=== PATIENT | female | born 1980 | race Caucasian/White ===

== ENCOUNTER 2016-10-13 21:20 | Emergency (ER) | payer BC ==
[2016-10-13 21:42] VITALS: BP 157/109
--- NOTE | 2016-10-13 22:11 | EDM.PDOC ---
ED HPI GENERAL MEDICAL PROBLEM - General Chief Complaint: Back Pain or Injury Stated Complaint: UPPER NECK AND SHOULDER PAIN Time Seen by Provider: 10/13/16 21:50 Source of Information: Reports: Patient History Limitations: Reports: Other (angry) - History of Present Illness INITIAL COMMENTS - FREE TEXT/NARRATIVE: Patient is a 36-year-old female with history of fibromyalgia who presents to the ED complaining of right-sided neck discomfort. Patient states neck discomfort has been going on for the past 2 and half months. She's been seen Dr. Kohli PCP at [facility] in [place]. He is undergone multiple trigger point injections the right trapezius with some relief. Patient states the pain is constant with waxing and waning in intensity. She was last seen by Dr. Kohli this past . States yesterday she was washing the floor and awoke this morning with increasing pain to the right side of her neck. Pain is localized. Worsened with palpation and also stretching of the neck. She took a Flexeril this afternoon with some relief. States she's utilizing her right arm with less and less due to reaggravated her neck pain. She has had no physical therapy. She refuses to have physical therapy. She has been living with fibromyalgia for the past 20 years and has been performing stretching exercises on her own. She does not participate any physical activities. She has been evaluated by a chiropractor with minimal relief. Denies fever/chills, weakness, n/t, n/v, vision changes, or any additional complaints. Past medical history: Hypertension, gastritis, GERD, hemorrhoids, irritable bowel syndrome, nausea/vomiting, diarrhea, peptic ulcer disease, L or baited LFTs, rectal bleeding renal calculus, UTI, endometriosis, menorrhagia, pelvic pain, fibromyalgia, polyarthralgia, carpal tunnel syndrome, arthropathy, migraines, chronic pain neck/back/legs, depression, anxiety, obesity, vitamin D deficiency, cushingoid facies, B12 deficiency, iron deficiency, hypokalemia, cerebra dermatitis, candidiasis Current medications see list. Right Neck Pain Score (Numeric/FACES): 10 - Related Data Allergies Allergy/AdvReac Type Severity Reaction Status Date / Time Cephalosporins Allergy Unknown Cannot Verified 10/13/16 21:42 Remember Penicillins Allergy Unknown Hives Verified 10/13/16 21:42 Sulfa (Sulfonamide Allergy Unknown Hives Verified 10/13/16 21:42 Antibiotics) ondansetron HCl Allergy unknown Verified 10/13/16 21:42 [From Zofran (as hydrochloride)] sertraline HCl [From Zoloft] AdvReac Mild Dizziness Verified 10/13/16 21:42 latex AdvReac Unknown Decreased Verified 10/13/16 21:42 Urine Output metoclopramide HCl AdvReac Diarrhea Verified 10/13/16 21:42 [From Reglan] Home Meds: Home Meds RX: Lisinopril 5 mg PO DAILY 12/09/14 [History] RX: Pantoprazole [ProTONIX] 40 mg PO DAILY 12/15/14 [History] Fluconazole [Diflucan] 150 mg PO DAILY #2 tablet 06/15/16 [Rx] RX: Azithromycin [IJD: Azithromycin] 250 mg PO DAILY #6 tab 06/15/16 [Rx] Topiramate [Topamax] 25 mg PO DAILY 06/15/16 [History] Past Medical History HEENT History: Reports: Impaired Vision Other HEENT History: Wears glasses Cardiovascular History: Reports: Hypertension Other Cardiovascular History: tachycardia Other Respiratory History: Severe snoring [negative sleep study] Gastrointestinal History: Reports: Gastritis, GERD, Hemorrhoids, Irritable Bowel Syndrome Other Gastrointestinal History: nausea and vomitting, diarrhea, peptic ulcer, transaminitis - drug-induced elev. 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 Other OB/BYN History: menorrhagia, pelvic pain, 3 surgeries for endometriosis Musculoskeletal History: Reports: Fracture, Fibromyalgia Other Musculoskeletal History: hx of fracture to foot, chronic pain, polyarthralgia, carpal tunnel syndrome, arthropathy Neurological History: Reports: Migraines Other Neuro History: fibromyalgia, chronic pain -neck/back/lower legs, migraines with aura Psychiatric History: Reports: Anxiety, Depression Other Psychiatric History: fatigue Endocrine/Metabolic History: Reports: Obesity/BMI 30+, Vitamin D Deficiency Other Endocrine/Metabolic History: cushingoid facies Hematologic History: Reports: B12 Deficiency, Iron Deficiency Other Hematologic History: hypokalemia, iron deficiency, vitamin b 12 deficiency , vitamin D deficiency Dermatologic History: Reports: Seborrheic Dermatitis Other Dermatologic History: seborrheic keratosis, nevus, rash, seborrheic dermatitis, hx of candidiasis - Past Surgical History HEENT Surgical History: Reports: Naso-Sinus Surgery GI Surgical History: Reports: Colonoscopy, EGD Female Surgical History: Reports: Breast Reduction, Hysterectomy, Kidney stone extraction Social & Family History - Family History Family Medical History: Noncontributory - Tobacco Use Smoking Status *Q: Never Smoker Years of Tobacco use: 15 Packs/Tins Daily: 0.3 Used Tobacco, but Quit: Yes Month Tobacco Last Used: Quit 2011 Second Hand Smoke Exposure: No - Caffeine Use Caffeine Use: Reports: Soda, Tea Other Caffeine Use: rarely on the soda - Alcohol Use Days Per Week of Alcohol Use: 0 Number of Drinks Per Day: 0 Total Drinks Per Week: 0 - Recreational Drug Use Recreational Drug Use: No Drug Use in Last 12 Months: No - Living Situation & Occupation Living situation: Reports: , with Spouse Occupation: Unemployed ED ROS GENERAL - Review of Systems Review Of Systems: ROS reveals no pertinent complaints other than HPI. ED EXAM, UPPER BACK/NECK PAIN - Physical Exam Exam: See Below Exam Limited By: No Limitations General Appearance: Alert, WD/WN, Anxious, Obese Ears Exam: Normal External Exam, Hearing Grossly Normal Nose Exam: Normal Inspection Throat/Mouth Exam: Normal Voice, No Airway Compromise Head Exam: Atraumatic, Normocephalic Neck Exam: Full Range of Motion, Normal Alignment, Normal Inspection, Other ( Tenderness to the right lateral aspect of the neck with extension into the Rolando trapezius. This is worsen with moving her head from left to right.). No: Spinous Processes Tender, Stiff Neck, Tender Midline Nexus Criteria: No: Posterior, Midline Cervical Tenderness, Evidence of Intoxication, Altered Level of Consciousness, Focal Neurological Deficit, Painful Distraction Injuries Cardiovascular/Respiratory: Regular Rate, Rhythm, No M/R/G, Normal Peripheral Pulses, No JVD, Normal Breath Sounds, No Respiratory Distress Back Exam: Normal Inspection, Full Range of Motion. 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 No: Motor Weakness, Sensory Deficit Psychiatric: Normal Affect, Anxious Skin Exam: Normal Color, Warm/Dry Course - Vital Signs Last Recorded V/S: Last Vital Signs Temp 98.0 F 10/13/16 21:38 Pulse 101 H 10/13/16 21:38 Resp 16 10/13/16 21:38 BP 157/109 H 10/13/16 21:38 Pulse Ox 97 10/13/16 21:38 - Re-Assessments/Exams Free Text/Narrative Re-Assessment/Exam: Patient presents to the ED complaining of right-sided neck discomfort that was exacerbated with cleaning the floor yesterday. Patient awoke up this morning with pain to the right side of her neck that has decreased with taking Flexeril tab. Patient's been seen Dr. Kohli PCP at [facility] in [place] for trigger point injections. She was last seen by him on of this past week. This has been an ongoing issue with waxing waning in intensity and relief of this treatments. She is concerned that there is something definitely wrong with her neck. Patient denies any recent trauma or precipitating activities and may have caused the neck discomfort onset. She has a history of chronic pain syndrome/fibromyalgia. She is requesting to have a CT scan or MRI of her neck to identify any potential causes of the discomfort. Dr. Kohli has not obtained a MRI or CT of the neck at this time. She refuses to go to physical therapy for what ever reason. I asked the patient if she participates in any physical activity such as lifting, walking, running. Patient states no she is active on a daily basis. I informed her that some people with fibromyalgia improve with doing some form of physical activity. Patient became aggravated and took it as I was telling her that she needs to run and lift weights to decrease her pain. I again informed her that literature has shown that some patients that performed some kind of physical activity such as lifting, walking, or running may decrease her pain. Again patient requested to have a CT scan of the neck. I informed her that is not required and is not the best study to obtain at this point. MRI is due to chronicity of complaint. She has no physical findings on exam that suggest requiring emergency CT scan of her neck at this point. I again informed her that this is not the study of choice and Dr. Kohli can arrange obtaining an MRI of the neck. Patient eloped. Departure - Departure Time of Disposition: 22:15 Disposition: Eloped 07 Condition: Good Clinical Impression: Chronic neck pain - Discharge Information Referrals: Cira Patricia [Primary Care Provider] - Forms: ED Department Discharge
== END 2016-10-13 22:15 | disposition left against medical advice (07) ==
LOC: JD.ED 21:20
DX: M54.2 Cervicalgia (principal); G89.29 Other chronic pain; I10 Essential (primary) hypertension; K21.9 Gastro-esophageal reflux disease without esophagitis; G43.909 Migraine, unspecified, not intractable, without status migrainosus; Z88.0 Allergy status to penicillin; Z88.2 Allergy status to sulfonamides; Z91.040 Latex allergy status; Z88.8 Allergy status to other drugs, medicaments and biological substances; Z79.899 Other long term (current) drug therapy; Z87.440 Personal history of urinary (tract) infections; Z90.710 Acquired absence of both cervix and uterus
CPT/HCPCS: 99282; 99283

== ENCOUNTER 2016-11-14 08:11 | Day surgery (SDC) | payer BC ==
[~2016-11-14 08:11] MED LIST: Lactated Ringers 1,000 ML IV SCH; Lidocaine 1%/Sod Bicarbonate in NS 8.4% 1 ML Syringe PRN; Sodium Chloride 0.9% 10 ML Syringe FLUSH PRN
--- NOTE | 2016-11-14 09:59 | PCM.PREANE ---
Preanesthetic Assessment - Anesthesia/Transfusion/Family Hx Anesthesia History: Prior Anesthesia Without Reaction Other Type of Anesthesia Reaction Comment: Unknown family history of surgery and anesthesia per patient Family History of Anesthesia Reaction: No Transfusion History: No Prior Transfusion(s) - Review of Systems General: No Symptoms Pulmonary: No Symptoms Cardiovascular: No Symptoms Gastrointestinal: Abdominal Pain Neurological: No Symptoms Other: Reports: None - Physical Assessment NPO Status Date: 11/13/16 NPO Status Time: 23:59 Pulse: 80 O2 Sat by Pulse Oximetry: 96 Respiratory Rate: 16 Blood Pressure: 130/87 Temperature: 97.5 C Vital Signs: Last Vital Signs Temp 36.4 C 11/14/16 08:15 Pulse 80 11/14/16 08:15 Resp 16 11/14/16 08:15 BP 130/87 11/14/16 08:15 Pulse Ox 96 11/14/16 08:15 Height: 1.6 m Weight: 84.368 kg ASA Class: 2 Mental Status: Alert & Oriented x3 Airway Class: Mallampati = 2 Dentition: Reports: Normal Dentition Thyro-Mental Finger Breadths: 2 Mouth Opening Finger Breadths: 3 ROM/Head Extension: Full Lungs: Clear to Auscultation, Normal Respiratory Effort Cardiovascular: Regular Rate, Regular Rhythm - Allergies Allergies/Adverse Reactions: Allergies Allergy/AdvReac Type Severity Reaction Status Date / Time Cephalosporins Allergy Unknown Cannot Verified 11/13/16 15:15 Remember Penicillins Allergy Unknown Hives Verified 11/13/16 15:15 Sulfa (Sulfonamide Allergy Unknown Hives Verified 11/13/16 15:15 Antibiotics) sertraline HCl [From Zoloft] AdvReac Mild Dizziness Verified 11/13/16 15:15 latex AdvReac Unknown Decreased Verified 11/13/16 15:15 Urine Output metoclopramide HCl AdvReac Diarrhea Verified 11/13/16 15:15 [From Reglan] - Acknowledgements Anesthesia Type Planned: MAC Pt an Appropriate Candidate for the Planned Anesthesia: Yes Alternatives and Risks of Anesthesia Discussed w Pt/Guardian: Yes Pt/Guardian Understands and Agrees with Anesthesia Plan: Yes PreAnesthesia Questionnaire HEENT History: Reports: Allergic Rhinitis, Impaired Vision, Sinusitis Other HEENT History: Wears glasses, nasal ulcer Cardiovascular History: Reports: Hypertension Other Cardiovascular History: tachycardia, edema Respiratory History: Reports: Other (See Below) (pt has had a sleep study, negative) Other Respiratory History: Severe snoring [negative sleep study] Gastrointestinal History: Reports: Chronic Constipation, Chronic Diarrhea, Gastritis, GERD, Hemorrhoids, Irritable Bowel Syndrome, PUD Other Gastrointestinal History: nausea and vomitting, diarrhea, peptic ulcer, transaminitis - drug-induced elev. 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 Other OB/BYN History: menorrhagia, pelvic pain, 3 surgeries for endometriosis, breast swelling, candidasis of breast, dysmenorrhea, gential herpes, irregular menses, breast hematoma Musculoskeletal History: Reports: Fracture, Fibromyalgia, Neck Pain, Chronic, Other (See Below) Other Musculoskeletal History: hx of fracture to foot, chronic pain, polyarthralgia, carpal tunnel syndrome, arthropathy, chronic neck and shoulder pain, spine pain Neurological History: Reports: Headaches, Chronic, Migraines Other Neuro History: fibromyalgia, chronic pain -neck/back/lower legs, migraines with aura, memory impairments Psychiatric History: Reports: Anxiety, Depression Other Psychiatric History: fatigue, heterozygous MTHFR mutation [id number], chronic pain Endocrine/Metabolic History: Reports: Obesity/BMI 30+, Vitamin D Deficiency Other Endocrine/Metabolic History: cushingoid facies Hematologic History: Reports: B12 Deficiency, Iron Deficiency Other Hematologic History: hypokalemia, iron deficiency, vitamin b 12 deficiency , vitamin D deficiency, Heterozygous MTHFR mutation [id number] Immunologic History: Reports: None Oncologic (Cancer) History: Reports: None Dermatologic History: Reports: Seborrheic Dermatitis Other Dermatologic History: seborrheic keratosis, nevus, rash, seborrheic dermatitis, hx of candidiasis, hand dermatitis, neoplasm of skin, skin ulcer, surgical wound infection, viral warts - Past Surgical History Head Surgeries/Procedures: Reports: None HEENT Surgical History: Reports: Naso-Sinus Surgery Other HEENT Surgeries/Procedures: Deviated septum repair, sinus surgery Cardiovascular Surgical History: Reports: None Respiratory Surgical History: Reports: None GI Surgical History: Reports: Cholecystectomy, Colonoscopy, EGD Other GI Surgeries/Procedures: anal fistulotomy with botox injection Female Surgical History: Reports: Breast Reduction, Hysterectomy, Kidney stone extraction Male Surgical History: Reports: None Endocrine Surgical History: Reports: None Neurological Surgical History: Reports: None Musculoskeletal Surgical History: Reports: None Oncologic Surgical History: Reports: None Dermatological Surgical History: Reports: None (no anesthetic complications) - SUBSTANCE USE Smoking Status *Q: Former Smoker Tobacco Use Within Last Twelve Months: No Second Hand Smoke Exposure: No Days Per Week of Alcohol Use: 0 Number of Drinks Per Day: 0 Total Drinks Per Week: 0 Recreational Drug Use History: No - HOME MEDS Home Medications: Home Meds Betamethasone Dipropionate [Diprosone 0.05% Crm] 1 applic TOP BID 11/13/16 [ History] Betamethasone Valerate [IJD: Valisone 0.1% Crm] 1 applic TOP ASDIRECTED PRN [History] Cyclobenzaprine [Flexeril] 10 mg PO TID PRN 11/13/16 [History] Ranitidine HCl [Ranitidine] 150 mg PO BID 11/13/16 [History] Topiramate 50 mg PO DAILY 11/13/16 [History] - CURRENT (IN HOUSE) MEDS Current Meds: Current Medications Lactated Ringer's (Ringers, Lactated) 1,000 mls @ 125 mls/hr IV ASDIRECTED [place] Stop: 11/14/16 23:00 Last Admin: 11/14/16 08:40 Dose: 125 mls/hr Lidocaine/Sodium Bicarbonate (Buffered Lidocaine 1% In Ns 8.4%) 0.25 ml .XX ONETIME PRN PRN Reason: Prior to IV Start Stop: 11/14/16 18:00 Last Admin: 11/14/16 08:39 Dose: 0.25 ml Sodium Chloride (Saline Flush) 10 ml FLUSH ASDIRECTED PRN PRN Reason: Keep Vein Open Stop: 11/14/16 18:00
[2016-11-14] MEDS ORDERED: Propofol 200 MG/20 ML SDV ONE (10:21)
--- NOTE | 2016-11-14 10:32 | PCM.OPNOTE ---
- General Post-Op/Procedure Note Date of Surgery/Procedure: 11/14/16 Operative Procedure(s): Esophagogastroduodenoscopy with antral and GE junction biopsy 2 using cold forceps Findings: Retained food from yesterday's dinner otherwise an unremarkable endoscopic examination Pre Op Diagnosis: Dyspepsia and gastritis Post-Op Diagnosis: Normal endoscopic evaluation Anesthesia Technique: MAC, Moderate Sedation Primary Surgeon: Fernando Shen Pathology: GE junction and antral biopsies EBL in mLs: 0 Complications: None Condition: Good Free Text/Narrative:: After adequate IV sedation and analgesia was obtained with monitoring the patient was placed on her left side. Through a bite block a lubricated upper endoscope was inserted into the esophagus then advanced under direct vision to the stomach. The stomach contained a fair amount of food material with red beans and rice. The scope was advanced to the antrum and then into the duodenum. The second and first parts were endoscopically normal with no inflammatory changes or mass lesions seen. The antrum was unremarkable as well but I took 2 random biopsies for histologic review. In the retroflexed view one could see the food material. There was no hiatal hernia. The cardiac regions and fundic areas were normal. The body of the stomach couldn't be completely visualized because of the food material. There was slight duodenal gastric reflux when the patient coughed. The GE junction was endoscopically normal. I took 2 random biopsies of this area. The body of the esophagus was grossly normal. Air was removed as I finished the procedure. Photographs were taken for the patient and for the record.
--- NOTE | 2016-11-14 10:34 | PCM48HPAN ---
Post Anesthesia Note - EVALUATION WITHIN 48HRS OF ANESTHETIC Vital Signs in Normal Range: Yes Patient Participated in Evaluation: Yes Respiratory Function Stable: Yes Airway Patent: Yes Cardiovascular Function Stable: Yes Hydration Status Stable: Yes Pain Control Satisfactory: Yes Nausea and Vomiting Control Satisfactory: Yes Mental Status Recovered: Yes
[2016-11-14 11:19] VITALS: BP 117/69
== END 2016-11-14 11:10 | disposition home or self-care (01) ==
LOC: JD.SDS 08:11
PROVIDERS: ATTEND Surgery
PROC: 0DB68ZX Excision of Stomach, Via Natural or Artificial Opening Endoscopic, Diagnostic (ICD-10-PCS; principal; 2016-11-14)
DX: R10.13 Epigastric pain (principal); Z87.19 Personal history of other diseases of the digestive system; M54.2 Cervicalgia; G89.29 Other chronic pain; M79.7 Fibromyalgia; I10 Essential (primary) hypertension; K58.9 Irritable bowel syndrome, unspecified; E55.9 Vitamin D deficiency, unspecified; Z79.899 Other long term (current) drug therapy
CPT/HCPCS: 43239; 88305; J7120; 00740; J2704

== ENCOUNTER 2016-12-31 12:08 | Emergency (ER) | payer BC ==
[2016-12-31 12:20] VITALS: BP 138/94
[2016-12-31] MEDS ORDERED: Alum Hydrox/Mag Hydrox/Simeth 30 ML, Lidocaine 2% 15 ML PO ONE ×2 (12:44)
--- NOTE | 2016-12-31 12:51 | EDM.PDOC ---
ED HPI GENERAL MEDICAL PROBLEM - General Chief Complaint: Gastrointestinal Problem Stated Complaint: VOMITING BLOOD Time Seen by Provider: 12/31/16 12:32 Source of Information: Reports: Patient History Limitations: Reports: No Limitations - History of Present Illness INITIAL COMMENTS - FREE TEXT/NARRATIVE: Patient is a 36-year-old female with history of chronic gastritis presents the ED with pain to the epigastric region. Describes the pain as a sharp burning sensation with emesis of gastric contents. She has some acid reflux present. This is consistent with previous episodes. She is on no PPIs or H2 inhibitors at this time. She has had EGD and [address] Shen to biopsies obtained. Postop diagnosis is normal endoscopic evaluation. Patient awoke this morning with the discomfort. States last night she had eaten chips with salt and some eggs. She took maalox this am with onset of pain only to vomit it up. She has a history of fibromyalgia and gluten allergy. She is very cognizant of food she eats. Denies any ingestion of food or liquids that would have increased her symptoms. She did bring in a cup with only a few mls of emesis. Emesis was mostly clear with only a few specks of dark particles. She states is blood. No ceci blood present. She has no history of yousif nisreen tears. Denies CP, SOB, diarrhea, dysuria, lightheadness, or any additional complaints. Abdomen Pain Score (Numeric/FACES): 10 - Related Data Allergies Allergy/AdvReac Type Severity Reaction Status Date / Time Cephalosporins Allergy Unknown Cannot Verified 12/31/16 12:20 Remember Penicillins Allergy Unknown Hives Verified 12/31/16 12:20 Sulfa (Sulfonamide Allergy Unknown Hives Verified 12/31/16 12:20 Antibiotics) sertraline HCl [From Zoloft] AdvReac Mild Dizziness Verified 12/31/16 12:20 latex AdvReac Unknown Decreased Verified 12/31/16 12:20 Urine Output metoclopramide HCl AdvReac Diarrhea Verified 12/31/16 12:20 [From Reglan] Home Meds: Home Meds Cyclobenzaprine [Flexeril] 10 mg PO TID PRN 11/13/16 [History] Topiramate 50 mg PO DAILY 11/13/16 [History] Omeprazole 40 mg PO DAILY #28 cap.cr 12/31/16 [Rx] Sucralfate [Carafate] 1 gm PO QIDACANDBED #20 tablet 12/31/16 [Rx] Past Medical History HEENT History: Reports: Allergic Rhinitis, Impaired Vision, Sinusitis Other HEENT History: Wears glasses, nasal ulcer Cardiovascular History: Reports: Hypertension Other Cardiovascular History: tachycardia, edema Respiratory History: Reports: Other (See Below) Other Respiratory History: Severe snoring [negative sleep study] Gastrointestinal History: Reports: Chronic Constipation, Chronic Diarrhea, Gastritis, GERD, Hemorrhoids, Irritable Bowel Syndrome, PUD Other Gastrointestinal History: nausea and vomitting, diarrhea, peptic ulcer, transaminitis - drug-induced elev. 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: Reports: Endometriosis Other OB/BYN History: menorrhagia, pelvic pain, 3 surgeries for endometriosis, breast swelling, candidasis of breast, dysmenorrhea, gential herpes, irregular menses, breast hematoma Musculoskeletal History: Reports: Fracture, Fibromyalgia, Neck Pain, Chronic, Other (See Below) Other Musculoskeletal History: hx of fracture to foot, chronic pain, polyarthralgia, carpal tunnel syndrome, arthropathy, chronic neck and shoulder pain, spine pain Neurological History: Reports: Headaches, Chronic, Migraines Other Neuro History: fibromyalgia, chronic pain -neck/back/lower legs, migraines with aura, memory impairments Psychiatric History: Reports: Anxiety, Depression Other Psychiatric History: fatigue, heterozygous MTHFR mutation [id number], chronic pain Endocrine/Metabolic History: Reports: Obesity/BMI 30+, Vitamin D Deficiency Other Endocrine/Metabolic History: cushingoid facies Hematologic History: Reports: B12 Deficiency, Iron Deficiency Other Hematologic History: hypokalemia, iron deficiency, vitamin b 12 deficiency , vitamin D deficiency, Heterozygous MTHFR mutation [id number] Immunologic History: Reports: None Oncologic (Cancer) History: Reports: None Dermatologic History: Reports: Seborrheic Dermatitis Other Dermatologic History: seborrheic keratosis, nevus, rash, seborrheic dermatitis, hx of candidiasis, hand dermatitis, neoplasm of skin, skin ulcer, surgical wound infection, viral warts - Past Surgical History Head Surgeries/Procedures: Reports: None HEENT Surgical History: Reports: Naso-Sinus Surgery Other HEENT Surgeries/Procedures: Deviated septum repair, sinus surgery Cardiovascular Surgical History: Reports: None Respiratory Surgical History: Reports: None GI Surgical History: Reports: Cholecystectomy, Colonoscopy, EGD Other GI Surgeries/Procedures: anal fistulotomy with botox injection Female Surgical History: Reports: Breast Reduction, Hysterectomy, Kidney stone extraction, Lithotripsy/ESWL Endocrine Surgical History: Reports: None Neurological Surgical History: Reports: None Musculoskeletal Surgical History: Reports: None Oncologic Surgical History: Reports: None Dermatological Surgical History: Reports: None Social & Family History - Family History Family Medical History: Noncontributory - Tobacco Use Smoking Status *Q: Never Smoker Years of Tobacco use: 15 Packs/Tins Daily: 0.3 Used Tobacco, but Quit: Yes Month Tobacco Last Used: Quit 2011 Second Hand Smoke Exposure: No - Caffeine Use Caffeine Use: Reports: None Other Caffeine Use: rarely on the soda - Alcohol Use Days Per Week of Alcohol Use: 0 Number of Drinks Per Day: 0 Total Drinks Per Week: 0 - Recreational Drug Use Recreational Drug Use: No Drug Use in Last 12 Months: No - Living Situation & Occupation Living situation: Reports: , with Spouse Occupation: Unemployed ED ROS GENERAL - Review of Systems Review Of Systems: See Below Respiratory: Denies: Shortness of Breath, Cough, Sputum Cardiovascular: Denies: No Symptoms, Chest Pain, Palpitations GI/Abdominal: Reports: Abdominal Pain (epigastric burning sensation,consistent with previous episodes of gastritis), Decreased Appetite, Hematemesis (eloisa), Nausea, Vomiting. Denies: Black Stool, Bloody Stool, Constipation, Diarrhea, Hematochezia, Melena : Reports: No Symptoms Musculoskeletal: Reports: No Symptoms ED EXAM, GI/ABD - Physical Exam Exam: See Below Exam Limited By: No Limitations General Appearance: Alert, WD/WN, No Apparent Distress Ears: Hearing Grossly Normal Nose: Normal Inspection Throat/Mouth: Normal Voice, No Airway Compromise Neck: Normal Inspection Respiratory/Chest: No Respiratory Distress, Lungs Clear, Normal Breath Sounds, No Accessory Muscle Use, Chest Non-Tender Cardiovascular: Normal Peripheral Pulses, Regular Rate, Rhythm GI/Abdominal Exam: Normal Bowel Sounds, Soft, No Organomegaly, No Distention, Tender (mild pain with palpation to the epigastric region. No mcburneys point tenderness. ) Back Exam: Normal Inspection. No: CVA Tenderness (L), CVA Tenderness (R) Neurological: Alert, Oriented, CN II-XII Intact, Normal Cognition, No Motor/ Sensory Deficits Psychiatric: Normal Affect, Normal Mood Skin Exam: Warm, Dry, Intact, Normal Color Course - Vital Signs Last Recorded V/S: Last Vital Signs Temp 97.2 F 12/31/16 12:17 Pulse 103 H 12/31/16 12:17 Resp 16 12/31/16 12:17 BP 138/94 H 12/31/16 12:17 Pulse Ox 96 12/31/16 12:17 - Orders/Labs/Meds Meds: Medications Discontinued Medications Generic Name Dose Route Start Last Admin Trade Name Freq PRN Reason Stop Dose Admin Al Hydroxide/Mg Hydroxide 30 0 ml 12/31/16 12:44 12/31/16 12:53 ml/ Lidocaine HCl 15 ml PO 12/31/16 12:45 45 ml ONETIME ONE Administration Pantoprazole Sodium 40 mg 01/01/17 13:19 12/31/16 13:29 Protonix PO 01/01/17 13:20 40 mg DAILY ONE Administration Pantoprazole Sodium Confirm 12/31/16 13:25 12/31/16 13:29 Protonix Administered 12/31/16 13:26 Not Given Dose 40 mg .ROUTE .STK-MED ONE Sucralfate 1 gm 12/31/16 13:19 12/31/16 13:29 Carafate PO 12/31/16 13:20 1 gm ONETIME ONE Administration - Re-Assessments/Exams Free Text/Narrative Re-Assessment/Exam: Discussed with the patient that we will start with medications prior to obtaining any studies at this time. Patient agrees with this. Findings are consistent with previous episodes. Will start with the GI cocktail by mouth. Of note patient states she was receiving this from Dr. Longo her PCP on a daily basis for quite some time and had good results. 12/31/16 13:19 Symptoms have improved with the GI cocktail. Ordered Carafate 1 g by mouth and also Protonix 40 mg by mouth. We'll discharge patient home with instructions for gastritis. No further testing will be obtained. Departure - Departure Time of Disposition: 13:20 Disposition: Home, Self-Care 01 Condition: Good Clinical Impression: Gastritis Qualifiers: Gastritis type: unspecified gastritis Chronicity: chronic Gastritis bleeding: with bleeding Qualified Code(s): K29.51 - Unspecified chronic gastritis with bleeding Bloody emesis Qualifiers: Nausea presence: with nausea Qualified Code(s): K92.0 - Hematemesis - Discharge Information Prescriptions: Omeprazole 40 mg PO DAILY #28 cap.cr Sucralfate [Carafate] 1 gm PO QIDACANDBED #20 tablet Instructions: Gastritis, Adult Referrals: Cira Patricia [Primary Care Provider] - Forms: ED Department Discharge Additional Instructions: Symptoms were relieved with GI cocktail. Thus etiology of current complaint is related to chronic gastritis most likely. Treatment is symptomatically care only including x 40 mg every a.m. half-hour prior to eating for 2 weeks then one time a day thereafter. Carafate tabs 1 g times a day for 5 days. Refrain from any foods that cause aggravation. Refrain from any liquids that cause aggravation. Do not eat or drink within 4 hours of going to bed. This do not take any NSAIDs. See your PCP this week or the following week for reevaluation. Return to the ED for any new or worsening symptoms.
[2016-12-31] MEDS ORDERED: Sucralfate Suspension 1 GM/10 ML Cup PO ONE (13:19)
[2016-12-31] MEDS ORDERED: Pantoprazole 40 MG Tab.CR ONE (13:25)
[2017-01-01] MEDS ORDERED: Pantoprazole 40 MG Tab.CR PO ONE (13:19)
== END 2016-12-31 13:33 | disposition home or self-care (01) ==
LOC: JD.ED 12:08
DX: K29.71 Gastritis, unspecified, with bleeding (principal); K92.0 Hematemesis; I10 Essential (primary) hypertension; F32.9 Major depressive disorder, single episode, unspecified; E66.9 Obesity, unspecified; Z90.49 Acquired absence of other specified parts of digestive tract; Z98.890 Other specified postprocedural states; Z90.710 Acquired absence of both cervix and uterus; Z87.442 Personal history of urinary calculi; Z87.891 Personal history of nicotine dependence; Z79.899 Other long term (current) drug therapy; Z88.0 Allergy status to penicillin; Z88.1 Allergy status to other antibiotic agents; Z88.2 Allergy status to sulfonamides; Z88.8 Allergy status to other drugs, medicaments and biological substances; Z91.040 Latex allergy status
CPT/HCPCS: 99284; A9270; 99283

== ENCOUNTER 2018-05-19 21:37 | Emergency (ER) | payer BC, OTHER ==
[2018-05-19 21:49] VITALS: BP 166/97
[2018-05-19] MEDS ORDERED: Sodium Chloride 0.9% 1,000 ML IV STA (21:59)
[2018-05-19] MEDS ORDERED: Ondansetron 4 MG/2 ML SDV IVPUSH ONE (21:59)
[2018-05-19] MEDS ORDERED: Sodium Chloride 0.9% 10 ML Syringe FLUSH PRN (21:59)
[2018-05-19] MEDS ORDERED: HYDROmorphone 1 MG/ML Syringe IVPUSH ONE ×2 (22:00→22:57)
[2018-05-19] MEDS ORDERED: Sodium Chloride 0.9% 1,000 ML IV ONE (22:55)
--- NOTE | 2018-05-19 22:55 | EDM.PDOC ---
ED HPI GENERAL MEDICAL PROBLEM - General Chief Complaint: Abdominal Pain Stated Complaint: SEVERE ABDOMINAL PAIN VOMMITIING Time Seen by Provider: 05/19/18 21:48 Source of Information: Reports: Patient History Limitations: Reports: No Limitations - History of Present Illness INITIAL COMMENTS - FREE TEXT/NARRATIVE: The patient presents with nausea, vomiting, diarrhea and severe abdominal pain. This all started at 4am this morning. Her 's co-workers have all been sick. She has no fever, chills, cough, chest pain, shortness of breath, dysuria or hematuria. She does not think she is . She does not have a gallbladder but she has her appendix. This all started with the nausea and vomiting.l Onset: Gradual Duration: Hour(s): (started at 4am) Location: Reports: Abdomen Quality: Reports: Sharp, Other (cramping) Severity: Severe Improves with: Reports: None Worsens with: Reports: None Associated Symptoms: Reports: Nausea/Vomiting. Denies: Chest Pain, Cough, Fever /Chills, Headaches, Shortness of Breath Abdominal Pain Score (Numeric/FACES): 10 - Related Data Allergies Allergy/AdvReac Type Severity Reaction Status Date / Time Cephalosporins Allergy Unknown Cannot Verified 05/19/18 21:46 Remember Penicillins Allergy Unknown Hives Verified 05/19/18 21:46 Sulfa (Sulfonamide Allergy Unknown Hives Verified 05/19/18 21:46 Antibiotics) sertraline HCl [From Zoloft] AdvReac Mild Dizziness Verified 05/19/18 21:46 latex AdvReac Unknown Decreased Verified 05/19/18 21:46 Urine Output metoclopramide HCl AdvReac Diarrhea Verified 05/19/18 21:46 [From Reglan] Home Meds: Home Meds Cyclobenzaprine [Flexeril] 10 mg PO TID PRN 11/13/16 [History] Topiramate 50 mg PO DAILY 11/13/16 [History] Omeprazole 40 mg PO DAILY #28 cap.cr 12/31/16 [Rx] Sucralfate [Carafate] 1 gm PO QIDACANDBED #20 tablet 12/31/16 [Rx] Promethazine [Phenergan] 25 mg PO Q6H PRN #20 tab 05/20/18 [Rx] Past Medical History HEENT History: Reports: Allergic Rhinitis, Impaired Vision, Sinusitis Other HEENT History: Wears glasses, nasal ulcer Cardiovascular History: Reports: Hypertension Other Cardiovascular History: tachycardia, edema Respiratory History: Reports: Other (See Below) Other Respiratory History: Severe snoring [negative sleep study] Gastrointestinal History: Reports: Chronic Constipation, Chronic Diarrhea, Gastritis, GERD, Hemorrhoids, Irritable Bowel Syndrome, PUD Other Gastrointestinal History: nausea and vomitting, diarrhea, peptic ulcer, transaminitis - drug-induced elev. 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: Reports: Endometriosis Other SOLARIS ADMINISTRATOR History: menorrhagia, pelvic pain, 3 surgeries for endometriosis, breast swelling, candidasis of breast, dysmenorrhea, gential herpes, irregular menses, breast hematoma Musculoskeletal History: Reports: Fracture, Fibromyalgia, Neck Pain, Chronic, Other (See Below) Other Musculoskeletal History: hx of fracture to foot, chronic pain, polyarthralgia, carpal tunnel syndrome, arthropathy, chronic neck and shoulder pain, spine pain Neurological History: Reports: Headaches, Chronic, Migraines Other Neuro History: fibromyalgia, chronic pain -neck/back/lower legs, migraines with aura, memory impairments Psychiatric History: Reports: Anxiety, Depression Other Psychiatric History: fatigue, heterozygous MTHFR mutation [id number], chronic pain Endocrine/Metabolic History: Reports: Obesity/BMI 30+, Vitamin D Deficiency Other Endocrine/Metabolic History: cushingoid facies Hematologic History: Reports: B12 Deficiency, Iron Deficiency Other Hematologic History: hypokalemia, iron deficiency, vitamin b 12 deficiency , vitamin D deficiency, Heterozygous MTHFR mutation [id number] Immunologic History: Reports: None Oncologic (Cancer) History: Reports: None Dermatologic History: Reports: Seborrheic Dermatitis Other Dermatologic History: seborrheic keratosis, nevus, rash, seborrheic dermatitis, hx of candidiasis, hand dermatitis, neoplasm of skin, skin ulcer, surgical wound infection, viral warts - Past Surgical History Head Surgeries/Procedures: Reports: None HEENT Surgical History: Reports: Naso-Sinus Surgery Other HEENT Surgeries/Procedures: Deviated septum repair, sinus surgery Cardiovascular Surgical History: Reports: None Respiratory Surgical History: Reports: None GI Surgical History: Reports: Cholecystectomy, Colonoscopy, EGD Other GI Surgeries/Procedures: anal fistulotomy with botox injection Female Surgical History: Reports: Breast Reduction, Hysterectomy, Kidney stone extraction, Lithotripsy/ESWL Endocrine Surgical History: Reports: None Neurological Surgical History: Reports: None Musculoskeletal Surgical History: Reports: None Oncologic Surgical History: Reports: None Dermatological Surgical History: Reports: None Social & Family History - Family History Family Medical History: Noncontributory - Tobacco Use Smoking Status *Q: Never Smoker - Caffeine Use Caffeine Use: Reports: None Other Caffeine Use: rarely on the soda - Recreational Drug Use Recreational Drug Use: No - Living Situation & Occupation Living situation: Reports: , with Spouse Occupation: Unemployed ED ROS GENERAL - Review of Systems Review Of Systems: See Below Constitutional: Reports: No Symptoms HEENT: Reports: No Symptoms Respiratory: Reports: No Symptoms Cardiovascular: Reports: No Symptoms Endocrine: Reports: No Symptoms GI/Abdominal: Reports: Abdominal Pain, Diarrhea, Nausea, Vomiting : Reports: No Symptoms Musculoskeletal: Reports: No Symptoms Skin: Reports: No Symptoms ED EXAM, GI/ABD - Physical Exam Exam: See Below Exam Limited By: No Limitations General Appearance: Alert, Moderate Distress Ears: Normal External Exam Nose: Normal Inspection Head: Atraumatic, Normocephalic Neck: Normal Inspection Respiratory/Chest: No Respiratory Distress, Lungs Clear, Normal Breath Sounds Cardiovascular: Regular Rate, Rhythm, No Edema, No Murmur GI/Abdominal Exam: Soft, No Organomegaly, No Mass, Tender (Moderate tenderness to the upper abdomen.) Course - Vital Signs Last Recorded V/S: Last Vital Signs Temp 98.1 F 05/19/18 21:46 Pulse 97 05/19/18 21:46 Resp 16 05/19/18 21:46 BP 166/97 H 05/19/18 21:46 Pulse Ox 99 05/19/18 21:46 - Orders/Labs/Meds Orders: Active Orders 24 hr Category Date Time Status Peripheral IV Care [RC] . DIRECTED Care 05/19/18 21:59 Active Sodium Chloride 0.9% [Saline Flush] Med 05/19/18 21:59 Active 10 ml FLUSH ASDIRECTED PRN ED Antiemetic Medication Reflex [OM.PC] Stat Oth 05/19/18 21:59 Ordered Peripheral IV Insertion Adult [OM.PC] Stat Oth 05/19/18 21:59 Ordered Medication Orders Sodium Chloride (Saline Flush) 10 ml FLUSH ASDIRECTED PRN PRN Reason: Keep Vein Open Last Admin: 05/19/18 22:10 Dose: 10 ml Labs: Laboratory Tests 05/19/18 05/19/18 05/19/18 Range/Units 22:09 22:09 22:09 WBC 9.64 (3.98-10.04) K/mm3 RBC 5.02 (3.98-5.22) M/mm3 Hgb 15.2 (11.2-15.7) gm/L Hct 44.9 (34.1-44.9) % MCV 89.4 (79.4-94.8) fl MCH 30.3 (25.6-32.2) pg MCHC 33.9 (32.2-35.5) g/dl RDW Std Deviation 39.2 (36.4-46.3) fL Plt Count 330 (182-369) K/mm3 MPV 11.6 (9.4-12.3) fl Neut % (Auto) 74.6 H (34.0-71.1) % Lymph % (Auto) 17.4 L (19.3-51.7) % [place] % (Auto) 7.3 (4.7-12.5) % Eos % (Auto) 0.4 L (0.7-5.8) Baso % (Auto) 0.1 (0.1-1.2) % Neut # (Auto) 7.19 H (1.56-6.13) K/mm3 Lymph # (Auto) 1.68 (1.18-3.74) K/mm3 [place] # (Auto) 0.70 H (0.24-0.36) K/mm3 Eos # (Auto) 0.04 (0.04-0.36) K/mm3 Baso # (Auto) 0.01 (0.01-0.08) K/mm3 Sodium 140 (136-145) mEq/L Potassium 3.9 (3.5-5.1) mEq/L Chloride 102 (98-107) mEq/L Carbon Dioxide 15 L (21-32) mEq/L Anion Gap 26.9 H (5-15) BUN 14 (7-18) mg/dL Creatinine 1.0 (0.55-1.02) mg/dL Est Cr Clr Drug Dosing 63.10 mL/min Estimated GFR (MDRD) > 60 (>60) mL/min BUN/Creatinine Ratio 14.0 (14-18) Glucose 115 H (74-106) mg/dL Calcium 10.5 H (8.5-10.1) mg/dL Total Bilirubin 0.9 (0.2-1.0) mg/dL AST 23 (15-37) U/L ALT 22 (14-59) U/L Alkaline Phosphatase 40 L (46-116) U/L Total Protein 9.0 H (6.4-8.2) g/dl Albumin 4.9 (3.4-5.0) g/dl Globulin 4.1 gm/dL Albumin/Globulin Ratio 1.2 (1-2) Lipase 144 (73-393) U/L HCG, Qual Negative (NEGATIVE) Urine Color (Yellow) Urine Appearance (Clear) Urine pH (5.0-8.0) Ur Specific [place] (1.005-1.030) Urine Protein (Negative) Urine Glucose (UA) (Negative) Urine Ketones (Negative) Urine Occult Blood (Negative) Urine Nitrite (Negative) Urine Bilirubin (Negative) Urine Urobilinogen (0.2-1.0) Ur Leukocyte Esterase (Negative) Urine RBC (0-5) /hpf Urine WBC (0-5) /hpf Ur Epithelial Cells (0-5) /hpf Urine Bacteria (FEW) /hpf Urine Mucus (FEW) /hpf 05/19/18 Range/Units 23:00 WBC (3.98-10.04) K/mm3 RBC (3.98-5.22) M/mm3 Hgb (11.2-15.7) gm/L Hct (34.1-44.9) % MCV (79.4-94.8) fl MCH (25.6-32.2) pg MCHC (32.2-35.5) g/dl RDW Std Deviation (36.4-46.3) fL Plt Count (182-369) K/mm3 MPV (9.4-12.3) fl Neut % (Auto) (34.0-71.1) % Lymph % (Auto) (19.3-51.7) % [place] % (Auto) (4.7-12.5) % Eos % (Auto) (0.7-5.8) Baso % (Auto) (0.1-1.2) % Neut # (Auto) (1.56-6.13) K/mm3 Lymph # (Auto) (1.18-3.74) K/mm3 [place] # (Auto) (0.24-0.36) K/mm3 Eos # (Auto) (0.04-0.36) K/mm3 Baso # (Auto) (0.01-0.08) K/mm3 Sodium (136-145) mEq/L Potassium (3.5-5.1) mEq/L Chloride (98-107) mEq/L Carbon Dioxide (21-32) mEq/L Anion Gap (5-15) BUN (7-18) mg/dL Creatinine (0.55-1.02) mg/dL Est Cr Clr Drug Dosing mL/min Estimated GFR (MDRD) (>60) mL/min BUN/Creatinine Ratio (14-18) Glucose (74-106) mg/dL Calcium (8.5-10.1) mg/dL Total Bilirubin (0.2-1.0) mg/dL AST (15-37) U/L ALT (14-59) U/L Alkaline Phosphatase (46-116) U/L Total Protein (6.4-8.2) g/dl Albumin (3.4-5.0) g/dl Globulin gm/dL Albumin/Globulin Ratio (1-2) Lipase (73-393) U/L HCG, Qual (NEGATIVE) Urine Color Yellow (Yellow) Urine Appearance Slt cloudy H (Clear) Urine pH 5.5 (5.0-8.0) Ur Specific [place] > or = 1.030 (1.005-1.030) Urine Protein 1+ H (Negative) Urine Glucose (UA) Negative (Negative) Urine Ketones 4+ H (Negative) Urine Occult Blood 2+ H (Negative) Urine Nitrite Negative (Negative) Urine Bilirubin 1+ H (Negative) Urine Urobilinogen 0.2 (0.2-1.0) Ur Leukocyte Esterase Negative (Negative) Urine RBC 30-40 H (0-5) /hpf Urine WBC 0-5 (0-5) /hpf Ur Epithelial Cells 30-40 H (0-5) /hpf Urine Bacteria Few (FEW) /hpf Urine Mucus Not seen (FEW) /hpf Meds: Medications Generic Name Dose Route Start Last Admin Trade Name Freyadi PRN Reason Stop Dose Admin Sodium Chloride 10 ml 05/19/18 21:59 05/19/18 22:10 Saline Flush FLUSH 10 ml ASDIRECTED PRN Administration Keep Vein Open Discontinued Medications Generic Name Dose Route Start Last Admin Trade Name Freq PRN Reason Stop Dose Admin Hydromorphone HCl 0.5 mg 05/19/18 22:00 05/19/18 22:10 Dilaudid IVPUSH 05/19/18 22:01 0.5 mg ONETIME ONE Administration Hydromorphone HCl 1 mg 05/19/18 22:57 05/19/18 23:05 Dilaudid IVPUSH 05/19/18 22:58 1 mg ONETIME ONE Administration Sodium Chloride 1,000 mls @ 1,000 mls/hr 05/19/18 21:59 05/19/18 22:10 Normal Saline IV 05/19/18 22:58 1,000 mls/hr .BOLUS STA Administration Sodium Chloride 1,000 mls @ 1,000 mls/hr 05/19/18 22:55 05/19/18 23:31 Normal Saline IV 05/19/18 23:54 1,000 mls/hr ONETIME ONE Administration Ondansetron HCl 4 mg 05/19/18 21:59 05/19/18 22:10 Zofran IVPUSH 05/19/18 22:00 4 mg ONETIME ONE Administration Promethazine HCl 25 mg 05/19/18 22:57 05/19/18 23:05 Phenergan IM 05/19/18 22:58 25 mg ONETIME ONE Administration - Re-Assessments/Exams Free Text/Narrative Re-Assessment/Exam: 05/19/18 22:54 I ordered an IV NS 1L bolus, zofran 4mg IV, dilaudid IV, labs and a UA. 05/20/18 00:03 Her CBC looks good. Her anion gap was elevated at 26.9. Her lipase is normal. Her HCG is negative. Her UA shows no UTI. She is still having pain and nausea. I ordered dilaudid 1mg IV and phenergan 25mg IM. She feels much better after that. I will discharge her home. Departure - Departure Time of Disposition: 00:30 Disposition: Home, Self-Care 01 Condition: Good Clinical Impression: Gastroenteritis - Discharge Information *PRESCRIPTION DRUG MONITORING PROGRAM REVIEWED*: Not Applicable *COPY OF PRESCRIPTION DRUG MONITORING REPORT IN PATIENT JOSE: Not Applicable Prescriptions: Promethazine [Phenergan] 25 mg PO Q6H PRN #20 tab PRN Reason: Nausea/Vomiting Referrals: PCP,None [Primary Care Provider] - Forms: ED Department Discharge Additional Instructions: Drink plenty of fluids. Take the phenergan every 6 hours as needed for nausea and vomiting. Please return if you are worse. - My Orders Last 24 Hours: My Active Orders 05/19/18 21:59 Peripheral IV Care [RC] . DIRECTED Sodium Chloride 0.9% [Saline Flush] 10 ml FLUSH ASDIRECTED PRN ED Antiemetic Medication Reflex [OM.PC] Stat Peripheral IV Insertion Adult [OM.PC] Stat - Assessment/Plan Last 24 Hours: My Active Orders 05/19/18 21:59 Peripheral IV Care [RC] . DIRECTED Sodium Chloride 0.9% [Saline Flush] 10 ml FLUSH ASDIRECTED PRN ED Antiemetic Medication Reflex [OM.PC] Stat Peripheral IV Insertion Adult [OM.PC] Stat
[2018-05-19] MEDS ORDERED: Promethazine 25 MG/ML SDV IM ONE (22:57)
== END 2018-05-20 00:42 | disposition home or self-care (01) ==
LOC: JD.ED 21:37
DX: K52.9 Noninfective gastroenteritis and colitis, unspecified (principal); I10 Essential (primary) hypertension; Z88.1 Allergy status to other antibiotic agents; Z79.899 Other long term (current) drug therapy
CPT/HCPCS: 36415; 80053; 81001; 83690; 84703; 85025; 96361; 96372; 96374; 96375; 96376; 99284; J1170; J2405; J2550; J7040; 99283

== ENCOUNTER 2018-08-12 10:35 | Emergency (ER) | payer OTHER ==
[2018-08-12 10:52] VITALS: BP 142/86
--- NOTE | 2018-08-12 12:16 | EDM.PDOC ---
ED HPI GENERAL MEDICAL PROBLEM - General Chief Complaint: General Stated Complaint: MUSCLE SPASM/SEVERE PAIN Time Seen by Provider: 08/12/18 11:05 Source of Information: Reports: Patient History Limitations: Reports: Combative/Threatening - History of Present Illness INITIAL COMMENTS - FREE TEXT/NARRATIVE: 38 yo F w/ history of fibromyalgia comes in today with with multiple complaints, including chronic muscle spasms, bilateral shooting foot pain, and development of redness in R eye. She states she knows this isn't an emergency, but she tried to get in with an internal med doctor, go to the same day clinic here and was unable to get in, and she will not go to [facility] bc of insurance. She states the bilateral foot pain was random onset, describes as a shooting pain when she weight bears from the sole of the foot to just above the ankle, no history of trauma. The redness in her eye she thinks is from high blood pressure- she does not take her BP at home and it is 142/86 here. States her eye feels dry and eye drops have not helped. She states the most concerning symptom at this time for her is her chronic muscle spasms. In the past she has been on cyclobenzaprine with no improvement, she is unable to take NSAIDs d/t "gastric bleeding", and she can't take narcotics bc it will upset her body. She has tried Tylenol w/ caffeine at home and 1 dose of ibuprofen with no improvement. She states she used to see Dr. Patricia who would do trigger point injections, but I told her we do not do those here. She does not currently have a new PCP, so I offered to recommend her to one as this seems to be a chronic issue. I also said my options are limited here to help her, as most of the medications she has taken in the past is what we would give here, and her inability to have NSAIDs also limits the options. She got very upset, started yelling "WHAT IS THAT GOING TO DO FOR ME TODAY" and stormed out before I could do a physical exam or recommend a PCP. Generalized Pain Score (Numeric/FACES): 7 - Related Data Allergies Allergy/AdvReac Type Severity Reaction Status Date / Time Cephalosporins Allergy Unknown Cannot Verified 08/12/18 10:45 Remember Penicillins Allergy Unknown Hives Verified 08/12/18 10:45 Sulfa (Sulfonamide Allergy Unknown Hives Verified 08/12/18 10:45 Antibiotics) sertraline HCl [From Zoloft] AdvReac Mild Dizziness Verified 08/12/18 10:45 latex AdvReac Unknown Decreased Verified 08/12/18 10:45 Urine Output metoclopramide HCl AdvReac Diarrhea Verified 08/12/18 10:45 [From Reglan] Home Meds: Home Meds . [No Known Home Meds] 08/12/18 [History] Past Medical History HEENT History: Reports: Allergic Rhinitis, Impaired Vision, Sinusitis Other HEENT History: Wears glasses, nasal ulcer Cardiovascular History: Reports: Hypertension Other Cardiovascular History: tachycardia, edema Respiratory History: Reports: Other (See Below) Other Respiratory History: Severe snoring [negative sleep study] Gastrointestinal History: Reports: Chronic Constipation, Chronic Diarrhea, Gastritis, GERD, Hemorrhoids, Irritable Bowel Syndrome, PUD Other Gastrointestinal History: nausea and vomitting, diarrhea, peptic ulcer, transaminitis - drug-induced elev. LFT, rectal bleeding, anal fissure, bloating and cramps, gastroenteritis Genitourinary History: Reports: Renal Calculus, UTI, Recurrent, Other (See Below ) Other Genitourinary History: bladder spasms LABORER HOISTING History: Reports: Endometriosis Other LABORER HOISTING History: menorrhagia, pelvic pain, 3 surgeries for endometriosis, breast swelling, candidasis of breast, dysmenorrhea, gential herpes, irregular menses, breast hematoma Musculoskeletal History: Reports: Fracture, Fibromyalgia, Neck Pain, Chronic, Other (See Below) Other Musculoskeletal History: hx of fracture to foot, chronic pain, polyarthralgia, carpal tunnel syndrome, arthropathy, chronic neck and shoulder pain, spine pain Neurological History: Reports: Headaches, Chronic, Migraines Other Neuro History: fibromyalgia, chronic pain -neck/back/lower legs, migraines with aura, memory impairments Psychiatric History: Reports: Anxiety, Depression Other Psychiatric History: fatigue, heterozygous MTHFR mutation [id number], chronic pain Endocrine/Metabolic History: Reports: Obesity/BMI 30+, Vitamin D Deficiency Other Endocrine/Metabolic History: cushingoid facies Hematologic History: Reports: B12 Deficiency, Iron Deficiency Other Hematologic History: hypokalemia, iron deficiency, vitamin b 12 deficiency , vitamin D deficiency, Heterozygous MTHFR mutation [id number] Immunologic History: Reports: None Oncologic (Cancer) History: Reports: None Dermatologic History: Reports: Seborrheic Dermatitis Other Dermatologic History: seborrheic keratosis, nevus, rash, seborrheic dermatitis, hx of candidiasis, hand dermatitis, neoplasm of skin, skin ulcer, surgical wound infection, viral warts - Infectious Disease History Infectious Disease History: Reports: Chicken Pox - Past Surgical History Head Surgeries/Procedures: Reports: None HEENT Surgical History: Reports: Naso-Sinus Surgery Other HEENT Surgeries/Procedures: Deviated septum repair, sinus surgery Cardiovascular Surgical History: Reports: None Respiratory Surgical History: Reports: None GI Surgical History: Reports: Cholecystectomy, Colonoscopy, EGD Other GI Surgeries/Procedures: anal fistulotomy with botox injection Female Surgical History: Reports: Breast Reduction, Hysterectomy, Kidney stone extraction, Lithotripsy/ESWL Endocrine Surgical History: Reports: None Neurological Surgical History: Reports: None Musculoskeletal Surgical History: Reports: None Oncologic Surgical History: Reports: None Dermatological Surgical History: Reports: None Social & Family History - Family History Family Medical History: Noncontributory - Tobacco Use Smoking Status *Q: Never Smoker Second Hand Smoke Exposure: No - Caffeine Use Caffeine Use: Reports: None Other Caffeine Use: rarely on the soda - Recreational Drug Use Recreational Drug Use: No - Living Situation & Occupation Living situation: Reports: , with Spouse Occupation: Unemployed ED ROS GENERAL - Review of Systems Review Of Systems: See Below Constitutional: Reports: No Symptoms. Denies: Fever, Chills HEENT: Reports: Other (blood shot eye, feels dry ). Denies: Eye Pain Respiratory: Reports: No Symptoms Cardiovascular: Reports: No Symptoms Endocrine: Reports: No Symptoms GI/Abdominal: Reports: No Symptoms : Reports: No Symptoms Musculoskeletal: Reports: Back Pain (chronic spasms), Foot Pain (shooting pain, to above the ankle), Muscle Pain (chronic back spasms). Denies: Joint Pain, Joint Swelling Skin: Reports: No Symptoms Neurological: Reports: Difficulty Walking (pain with weight bearing). Denies: Confusion, Dizziness, Numbness, Tingling, Weakness Psychiatric: Reports: Agitation, Anxiety Immunologic: Reports: Other ("Allergic to everything including all things fermented") ED EXAM, GENERAL - Physical Exam Exam: Not Obtained (Pt left AMA before I could do an exam) Exam Limited By: Combative/Threatening (Pt left AMA before I could do an exam) General Appearance: Anxious Eye Exam: Right Eye: Conjunctival Injection Psychiatric: Anxious, Other (agitated) Course - Vital Signs Last Recorded V/S: Last Vital Signs Temp 98.2 F 08/12/18 10:45 Pulse 84 08/12/18 10:45 Resp 20 08/12/18 10:45 BP 142/86 H 08/12/18 10:45 Pulse Ox 99 08/12/18 10:45 Departure - Departure Time of Disposition: 12:00 Disposition: Eloped 07 Condition: Undetermined Clinical Impression: Muscle spasm of back, Bilateral foot pain, Anxiety, Conjunctival injection - Discharge Information *PRESCRIPTION DRUG MONITORING PROGRAM REVIEWED*: Yes *COPY OF PRESCRIPTION DRUG MONITORING REPORT IN PATIENT JOSE: Not Applicable Referrals: PCP,None [Primary Care Provider] -
== END 2018-08-12 11:57 | disposition left against medical advice (07) ==
LOC: JD.ED 10:35
DX: M62.830 Muscle spasm of back (principal); F41.9 Anxiety disorder, unspecified; M79.672 Pain in left foot; M79.671 Pain in right foot; H57.89 Other specified disorders of eye and adnexa; I10 Essential (primary) hypertension; Z88.1 Allergy status to other antibiotic agents; Z88.0 Allergy status to penicillin; Z88.2 Allergy status to sulfonamides; Z91.040 Latex allergy status; Z88.8 Allergy status to other drugs, medicaments and biological substances
CPT/HCPCS: 99283

== ENCOUNTER 2019-10-12 12:51 | Emergency (ER) | payer SELFPAY | END 2019-10-12 12:55 | disposition left against medical advice (07) | LOC: JD.ED 12:51 | DX: Z53.21 Procedure and treatment not carried out due to patient leaving prior to being seen by health care provider (principal) ==

== ENCOUNTER 2019-10-12 13:48 | Emergency (ER) | payer MEDICAID ==
[2019-10-12] MEDS ORDERED: HYDROmorphone 1 MG/ML Syringe IVPUSH STA (14:42)
[2019-10-12] MEDS ORDERED: Ondansetron 4 MG/2 ML SDV IVPUSH ONE (14:42)
[2019-10-12] MEDS ORDERED: Sodium Chloride 0.9% 1,000 ML IV SCH (14:45)
[2019-10-12] MEDS ORDERED: Alum Hydrox/Mag Hydrox/Simeth 30 ML, Lidocaine 2% 15 ML PO ONE ×2 (15:32)
[2019-10-12] MEDS ORDERED: Diatrizoate Meglumine/Diatrizoate Sodium 37% 120 ML Bottle PO ONE (15:45)
[2019-10-12] MEDS ORDERED: Iopamidol 612 MG/ML 100 ML Bottle IVPUSH ONE (15:45)
--- NOTE | 2019-10-12 15:45 | EDM.PDOC ---
ED HPI GENERAL MEDICAL PROBLEM - General Chief Complaint: Abdominal Pain Stated Complaint: UPPER ABDOMINAL PAIN Time Seen by Provider: 10/12/19 14:17 Source of Information: Reports: Patient, RN Notes Reviewed History Limitations: Reports: No Limitations - History of Present Illness INITIAL COMMENTS - FREE TEXT/NARRATIVE: Patient is a 39-year-old female who presents to the ED for evaluation of her upper abdominal pain. Patient notes this was of sudden onset, and points to her epigastrium and to her left upper quadrant. Patient states that she does have a history of IBS and gastritis, but the pain is way different than her normal flares of any of this. She states that she has had nausea and vomiting with dry heaves today, with some bile. Patient states that the pain comes and goes, she characterizes as a deep gnawing type of pain. She states sometimes she has issues with constipation but she has had multiple regular bowel movements today, she states that the nausea does increase with the waves of pain along with the vomiting. Patient has had a cholecystectomy, but still has her appendix. She has been doing some doctoring, and is found out she has many allergies to many different things, including a bunch of different types of foods, and medications. Patient denies any other sick-like symptoms, fever/chills, cough/shortness of breath, any dysuria, frequency or urgency. Treatments INJECTION MOLDER: Reports: Other (see below) Other Treatments INJECTION MOLDER: none Upper Abdomen Pain Score (Numeric/FACES): 8 - Related Data Allergies Allergy/AdvReac Type Severity Reaction Status Date / Time Cephalosporins Allergy Severe Cannot Verified 10/12/19 14:10 Remember Penicillins Allergy Severe Hives Verified 10/12/19 14:10 Sulfa (Sulfonamide Allergy Severe Hives Verified 10/12/19 14:10 Antibiotics) latex AdvReac Severe Decreased Verified 10/12/19 14:10 Urine Output metoclopramide HCl AdvReac Severe Diarrhea Verified 10/12/19 14:10 [From Reglan] sertraline HCl [From Zoloft] AdvReac Severe Dizziness Verified 10/12/19 14:10 Home Meds: Home Meds Cyclobenzaprine [Flexeril] 10 mg PO ASDIRECTED PRN 10/12/19 [History] Ondansetron [Zofran ODT] 4 mg PO Q8H PRN #15 tab.dis 10/12/19 [Rx] Past Medical History HEENT History: Reports: Allergic Rhinitis, Impaired Vision, Sinusitis Other HEENT History: Wears glasses, nasal ulcer Cardiovascular History: Reports: Hypertension Other Cardiovascular History: tachycardia, edema Respiratory History: Reports: Other (See Below) Other Respiratory History: Severe snoring [negative sleep study] Gastrointestinal History: Reports: Chronic Constipation, Chronic Diarrhea, Gastritis, GERD, Hemorrhoids, Irritable Bowel Syndrome, PUD Other Gastrointestinal History: nausea and vomitting, diarrhea, peptic ulcer, transaminitis - drug-induced elev. LFT, rectal bleeding, anal fissure, bloating and cramps, gastroenteritis Genitourinary History: Reports: Renal Calculus, UTI, Recurrent, Other (See Below) Other Genitourinary History: bladder spasms SUPPLY ANALYST History: Reports: Endometriosis Other SUPPLY ANALYST History: menorrhagia, pelvic pain, 3 surgeries for endometriosis, breast swelling, candidasis of breast, dysmenorrhea, gential herpes, irregular menses, breast hematoma Musculoskeletal History: Reports: Fracture, Fibromyalgia, Neck Pain, Chronic, Other (See Below) Other Musculoskeletal History: hx of fracture to foot, chronic pain, polyarthralgia, carpal tunnel syndrome, arthropathy, chronic neck and shoulder pain, spine pain Neurological History: Reports: Headaches, Chronic, Migraines Other Neuro History: fibromyalgia, chronic pain -neck/back/lower legs, migraines with aura, memory impairments Psychiatric History: Reports: Anxiety, Depression Other Psychiatric History: fatigue, heterozygous MTHFR mutation [id number], chronic pain Endocrine/Metabolic History: Reports: Obesity/BMI 30+, Vitamin D Deficiency Other Endocrine/Metabolic History: cushingoid facies Hematologic History: Reports: B12 Deficiency, Iron Deficiency Other Hematologic History: hypokalemia, iron deficiency, vitamin b 12 deficiency, vitamin D deficiency, Heterozygous MTHFR mutation [id number] Immunologic History: Reports: None Oncologic (Cancer) History: Reports: None Dermatologic History: Reports: Seborrheic Dermatitis Other Dermatologic History: seborrheic keratosis, nevus, rash, seborrheic dermatitis, hx of candidiasis, hand dermatitis, neoplasm of skin, skin ulcer, surgical wound infection, viral warts - Infectious Disease History Infectious Disease History: Reports: Chicken Pox - Past Surgical History Head Surgeries/Procedures: Reports: None HEENT Surgical History: Reports: Naso-Sinus Surgery Other HEENT Surgeries/Procedures: Deviated septum repair, sinus surgery Cardiovascular Surgical History: Reports: None Respiratory Surgical History: Reports: None GI Surgical History: Reports: Cholecystectomy, Colonoscopy, EGD Other GI Surgeries/Procedures: anal fistulotomy with botox injection Female Surgical History: Reports: Breast Reduction, Hysterectomy, Kidney stone extraction, Lithotripsy/ESWL Endocrine Surgical History: Reports: None Neurological Surgical History: Reports: None Musculoskeletal Surgical History: Reports: None Oncologic Surgical History: Reports: None Dermatological Surgical History: Reports: None Social & Family History - Family History Family Medical History: Noncontributory - Tobacco Use Smoking Status *Q: Never Smoker - Caffeine Use Caffeine Use: Reports: Tea Other Caffeine Use: rarely on the soda - Recreational Drug Use Recreational Drug Use: No - Living Situation & Occupation Living situation: Reports: , with Spouse Occupation: Unemployed ED ROS GENERAL - Review of Systems Review Of Systems: Comprehensive ROS is negative, except as noted in HPI. ED EXAM, GI/ABD - Physical Exam Exam: See Below Exam Limited By: No Limitations General Appearance: Alert, WD/WN, No Apparent Distress Eyes: Bilateral: Normal Appearance Ears: Normal External Exam Nose: Normal Inspection Throat/Mouth: Normal Inspection, Normal Lips, Normal Teeth, Normal Gums, Normal Oropharynx, Normal Voice, No Airway Compromise Head: Atraumatic, Normocephalic Neck: Normal Inspection Respiratory/Chest: No Respiratory Distress, Lungs Clear, Normal Breath Sounds, No Accessory Muscle Use, Chest Non-Tender GI/Abdominal Exam: Soft, No Mass, Tender (over epigastrium and into LUQ), Abnormal Bowel Sounds (hyperactive tones). No: Guarding, Rigid, Rebound Extremities: Normal Inspection, Normal Capillary Refill Neurological: Alert, Oriented, Normal Cognition, No Motor/Sensory Deficits Psychiatric: Normal Affect, Normal Mood Skin Exam: Warm, Dry, Intact, Normal Color, No Rash Course - Vital Signs Last Recorded V/S: Last Vital Signs Temp 98.1 F 10/12/19 14:16 Pulse 105 H 10/12/19 14:16 Resp BP 138/112 H 10/12/19 14:16 Pulse Ox 100 10/12/19 14:16 - Orders/Labs/Meds Orders: Active Orders 24 hr Category Date Time Status Sodium Chloride 0.9% [Normal Saline] 1,000 ml Med 10/12/19 14:45 Ordered IV ASDIRECTED Medication Orders Sodium Chloride (Normal Saline) 1,000 mls @ 999 mls/hr IV ASDIRECTED [facility] Last Admin: 10/12/19 15:05 Dose: 999 mls/hr Documented by: TAWANDA Labs: Laboratory Tests 10/12/19 10/12/19 10/12/19 Range/Units 15:00 15:00 15:20 WBC 15.24 H (3.98-10.04) K/mm3 RBC 4.92 (3.98-5.22) M/mm3 Hgb 14.8 (11.2-15.7) gm/dl Hct 44.0 (34.1-44.9) % MCV 89.4 (79.4-94.8) fl MCH 30.1 (25.6-32.2) pg MCHC 33.6 (32.2-35.5) g/dl RDW Std Deviation 40.7 (36.4-46.3) fL Plt Count 326 (182-369) K/mm3 MPV 11.5 (9.4-12.3) fl Neutrophils % (Manual) 90 H (40-60) % Band Neutrophils % 0 (0-10) % Lymphocytes % (Manual) 6 L (20-40) % Atypical Lymphs % 0 % Monocytes % (Manual) 3 (2-10) % Eosinophils % (Manual) 0 L (0.7-5.8) % Basophils % (Manual) 1 (0.1-1.2) Platelet Estimate Adequate RBC Morph Comment Normal Sodium 140 (136-145) mEq/L Potassium 3.9 (3.5-5.1) mEq/L Chloride 104 (98-107) mEq/L Carbon Dioxide 22 (21-32) mEq/L Anion Gap 17.9 H (5-15) BUN 12 (7-18) mg/dL Creatinine 0.8 (0.55-1.02) mg/dL Est Cr Clr Drug Dosing 77.33 mL/min Estimated GFR (MDRD) > 60 (>60) mL/min BUN/Creatinine Ratio 15.0 (14-18) Glucose 112 H (74-106) mg/dL Calcium 9.5 (8.5-10.1) mg/dL Total Bilirubin 0.6 (0.2-1.0) mg/dL AST 17 (15-37) U/L ALT 25 (14-59) U/L Alkaline Phosphatase 39 L (46-116) U/L Total Protein 8.5 H (6.4-8.2) g/dl Albumin 4.5 (3.4-5.0) g/dl Globulin 4.0 gm/dL Albumin/Globulin Ratio 1.1 (1-2) Lipase 150 (73-393) U/L Urine Color Yellow (Yellow) Urine Appearance Slt cloudy H (Clear) Urine pH 6.0 (5.0-8.0) Ur Specific [place] 1.025 (1.005-1.030) Urine Protein Trace H (Negative) Urine Glucose (UA) Negative (Negative) Urine Ketones 3+ H (Negative) Urine Occult Blood Negative (Negative) Urine Nitrite Negative (Negative) Urine Bilirubin Negative (Negative) Urine Urobilinogen 0.2 (0.2-1.0) Ur Leukocyte Esterase Negative (Negative) Urine RBC Not seen (0-5) /hpf Urine WBC 0-5 (0-5) /hpf Ur Squamous Epith Cells 0-5 (0-5) /hpf Calcium Oxalate Crystal Moderate H (NONE) Urine Bacteria Few (FEW) /hpf Urine Mucus Few (FEW) /hpf Meds: Medications Generic Name Dose Route Start Last Admin Trade Name Freq PRN Reason Stop Dose Admin Sodium Chloride 1,000 mls @ 999 mls/hr 10/12/19 14:45 10/12/19 15:05 Normal Saline IV 999 mls/hr ASDIRECTED [place] Administration Discontinued Medications Generic Name Dose Route Start Last Admin Trade Name Freq PRN Reason Stop Dose Admin Al Hydroxide/Mg Hydroxide 30 0 ml 10/12/19 15:32 10/12/19 16:15 ml/ Lidocaine HCl 15 ml PO 10/12/19 15:33 45 ml ONETIME ONE Administration Diatrizoate Meglum/Diatrizoate Sod 90 ml 10/12/19 15:45 10/12/19 16:27 Gastrografin 37% PO 10/12/19 15:46 90 ml ONETIME ONE Administration Hydromorphone HCl 1 mg 10/12/19 14:42 10/12/19 15:02 Dilaudid IVPUSH 10/12/19 14:43 1 mg ONETIME STA Administration Hydromorphone HCl 0.5 mg 10/12/19 16:06 10/12/19 16:10 Dilaudid IVPUSH 10/12/19 16:07 0.5 mg ONETIME ONE Administration Iopamidol 100 ml 10/12/19 15:45 10/12/19 16:27 Isovue-300 (61%) IVPUSH 10/12/19 15:46 100 ml ONETIME ONE Administration Ondansetron HCl 4 mg 10/12/19 14:42 10/12/19 15:01 Zofran IVPUSH 10/12/19 14:43 4 mg ONETIME ONE Administration - Re-Assessments/Exams Free Text/Narrative Re-Assessment/Exam: 10/12/19 15:50 Patient presents to the ED for her upper abdomen pain. Have ordered labs, abdomen pelvis CT, along with some IV fluids, IV meds for initial management. 10/12/19 17:10 Patient's labs have resulted, urinalysis is without infection. CBC demonstrates a modestly elevated white blood cell count at 15,000, with 90% neutrophils and 0 bands. Metabolic panel is essentially unremarkable. He demonstrates no acute abnormalities on today's visit. Review of the patient's medication shows that she is only taking Flexeril as needed. This could be a flare of her gastritis vs constipation. Patient notes that she has a gene mutation, that makes her re act certain ways to different drugs, she does not want any sort of medications much for the pain, but will except a prescription for Zofran, and I will provide with a bottle of this magnesium citrate to help provide a bowel cleanse. Patient states that she may have eaten some tortilla chips with some palm oil, and she is not sure if this may have aggravated issues as well. Nonetheless I will have her follow-up with her regular provider tomorrow or the next day if not feeling much better I did give her return precautions, and she does seem to understand when she should return to the ER for immediate urgent management. Departure - Departure Time of Disposition: 17:37 Disposition: Home, Self-Care 01 Condition: Good Clinical Impression: Epigastric pain - Discharge Information *PRESCRIPTION DRUG MONITORING PROGRAM REVIEWED*: No *COPY OF PRESCRIPTION DRUG MONITORING REPORT IN PATIENT JOSE: No Instructions: Abdominal Pain, Adult, [id number] Referrals: PCP,None [Primary Care Provider] - Forms: ED Department Discharge Additional Instructions: You were evaluated in the ER today regarding your upper abdominal pain. Laboratory evaluation was essentially within normal limits, your abdomen pelvis CT also demonstrated no acute abnormalities that needs further emergent manageme nt at today's visit. You did have quite a bit of stool throughout your colon, and have been given a bottle of magnesium citrate to further provide a bowel cleanse. Please drink one half bottle, wait a few hours, if not much better or have a few rather large bowel movements, please repeat with the last half bottle. The oral contrast received today, should also help provide a bowel cleanse. If you should develop intractable nausea/vomiting, fevers over 100.4 �F, or any abdominal pain that is not tolerable at home, you may return to the ER for further management, otherwise I recommend you follow-up with your regular care provider after the next few days for re-evaluation and further management. You were given a prescription for Zofran, please take 1 tab dissolvable under your tongue every 8 hours as needed for nausea. Please return to the ER if your symptoms change or worsen. Sepsis Event Note (ED) - Evaluation Sepsis Screening Result: No Definite Risk - Focused Exam Vital Signs: Vital Signs Temp Pulse BP Pulse Ox 10/12/19 14:16 98.1 F 105 H 138/112 H 100 - My Orders Last 24 Hours: My Active Orders 10/12/19 14:45 Sodium Chloride 0.9% [Normal Saline] 1,000 ml IV ASDIRECTED - Assessment/Plan Last 24 Hours: My Active Orders 10/12/19 14:45 Sodium Chloride 0.9% [Normal Saline] 1,000 ml IV ASDIRECTED
[2019-10-12] MEDS ORDERED: HYDROmorphone 0.5 MG/0.5 ML Syringe IVPUSH ONE (16:06)
--- NOTE | 2019-10-12 16:49 | CT ---
CT abdomen and pelvis Technique: Multiple axial sections were obtained from slightly below the top of the liver inferiorly through the pubic symphysis. Intravenous contrast was utilized. No oral contrast has been given. Comparison: Prior noncontrast CT study of 08/04/14. Findings: Visualized lung bases show nothing acute. Liver contains no focal abnormality. Mild intrahepatic biliary duct dilatation is seen most likely residual from prior cholecystectomy. Spleen appears within normal limits. Adrenal glands show no nodule. Pancreas shows no discrete abnormality. Kidneys show symmetric contrast enhancement. Small cortical lesions are seen within both kidneys, more numerous on the right side which most likely represent multiple small cortical cysts. Aorta shows no aneurysm. No retroperitoneal adenopathy or mesenteric abnormalities are seen. Appendix is seen which is normal. No pelvic mass or adenopathy is seen. No free fluid or inflammatory change is seen. Delayed images shows contrast within the bladder. Bone window settings were reviewed. No acute osseous finding is appreciated. Small fat-containing umbilical hernia is noted. Impression: 1. Nothing acute is appreciated on CT study of the abdomen and pelvis. Diagnostic code #2 This report was dictated in MDT
[2019-10-12] MEDS ORDERED: Magnesium Citrate Solution 296 ML Bottle PO ONE (17:38)
[2019-10-12 17:54] VITALS: BP 125/96; PULSE 95
== END 2019-10-12 18:02 | disposition home or self-care (01) ==
LOC: JD.ED 13:48
DX: R10.13 Epigastric pain (principal); R10.12 Left upper quadrant pain; I10 Essential (primary) hypertension; E66.9 Obesity, unspecified; Z68.30 Body mass index [BMI] 30.0-30.9, adult; Z88.1 Allergy status to other antibiotic agents; Z88.0 Allergy status to penicillin; Z88.2 Allergy status to sulfonamides; Z88.8 Allergy status to other drugs, medicaments and biological substances; Z91.040 Latex allergy status
CPT/HCPCS: 36415; 74177; 80053; 81001; 83690; 85007; 85027; 96361; 96374; 96375; 96376; 99284; A9270; J1170; J2405; J7030; Q9963; Q9967

== ENCOUNTER 2019-12-29 19:18 | Emergency (ER) | payer MEDICAID ==
[2019-12-29 19:44] VITALS: BP 91/66; PULSE 68
[2019-12-29] MEDS ORDERED: Dextrose 5%-Lactated Ringers 1,000 ML IV SCH (20:00)
[2019-12-29] MEDS ORDERED: diphenhydrAMINE 50 MG/ML SDV IVPUSH ONE (20:01)
[2019-12-29] MEDS ORDERED: Promethazine 25 MG in Sodium Chloride 0.9% 50 ML IV ONE (20:01)
--- NOTE | 2019-12-29 20:05 | EDM.PDOC ---
ED HPI GENERAL MEDICAL PROBLEM - General Chief Complaint: Gastrointestinal Problem Stated Complaint: Nausea and vomiting Time Seen by Provider: 12/29/19 20:00 Source of Information: Reports: Patient History Limitations: Reports: No Limitations - History of Present Illness INITIAL COMMENTS - FREE TEXT/NARRATIVE: 39-year-old female presents to the ED with acute onset of upper abdominal pain associate with development of nausea and vomiting after eating fried eggs for supper. She also reports that she had prolific yellow-brown diarrhea at the same time she started vomiting. She states she had a similar event last evening. She states she usually only eats once daily she did not have breakfast or supper today. Complaining of waves of nausea and pain in her upper abdomen but does not want any medication for pain as it usually makes the nausea worse. She gives a history of being allergic to Reglan. She did try Zofran sublingual prior to coming to the ED with no effect. No fever or chills. She has no known allergies to eggs but has allergies to numerous other food. Patient has had a previous cholecystectomy and hysterectomy. Also upper EGDs with no positive fi ndings. She does not drink alcohol and has no history of pancreatitis. Onset: Today, Sudden Onset Date: 12/29/19 Onset Time: 18:00 Duration: Hour(s):, Constant Location: Reports: Abdomen (Diffuse periumbilical and upper abdominal pain from vomiting. Constant waves of nausea.) Quality: Reports: Ache, Pressure, Other Severity: Severe (Days of nausea with upper abdominal pain.) Improves with: Reports: None (Tried Zofran sublingual at home with no effect.) Worsens with: Reports: Eating Context: Reports: Other (Symptom complex started after eating fried eggs tonight for supper.). Denies: Activity, Exercise, Lifting, Sick Contact, Trauma Associated Symptoms: Reports: Weakness, Other (Prolific explosive diarrhea yellow-brown in color. 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 (see below) (She did take a Zofran 4 mg sublingual at home.) - Related Data Allergies Allergy/AdvReac Type Severity Reaction Status Date / Time Cephalosporins Allergy Severe Cannot Verified 12/29/19 19:42 Remember Penicillins Allergy Severe Hives Verified 12/29/19 19:42 Sulfa (Sulfonamide Allergy Severe Hives Verified 12/29/19 19:42 Antibiotics) latex AdvReac Severe Decreased Verified 12/29/19 19:42 Urine Output metoclopramide HCl AdvReac Severe Diarrhea Verified 12/29/19 19:42 [From Reglan] sertraline HCl [From Zoloft] AdvReac Severe Dizziness Verified 12/29/19 19:42 Home Meds: Home Meds Cyclobenzaprine [Flexeril] 10 mg PO ASDIRECTED PRN 10/12/19 [History] Ondansetron [Zofran ODT] 4 mg PO Q8H PRN #15 tab.dis 10/12/19 [Rx] Ondansetron [Zofran] 4 mg BUCCAL Q6H PRN #10 tab 12/29/19 [Rx] Past Medical History HEENT History: Reports: Allergic Rhinitis, Impaired Vision, Sinusitis Other HEENT History: Wears glasses, nasal ulcer Cardiovascular History: Reports: Hypertension Other Cardiovascular History: tachycardia, edema Respiratory History: Reports: Other (See Below) Other Respiratory History: Severe snoring [negative sleep study] Gastrointestinal History: Reports: Chronic Constipation, Chronic Diarrhea, Gastritis, GERD, Hemorrhoids, Irritable Bowel Syndrome, PUD Other Gastrointestinal History: nausea and vomitting, diarrhea, peptic ulcer, transaminitis - drug-induced elev. 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: Reports: Endometriosis Other SOCIAL AND POLITICAL STUDIES PROFESSOR History: menorrhagia, pelvic pain, 3 surgeries for endometriosis, breast swelling, candidasis of breast, dysmenorrhea, gential herpes, irregular menses, breast hematoma Musculoskeletal History: Reports: Fracture, Fibromyalgia, Neck Pain, Chronic, Other (See Below) Other Musculoskeletal History: hx of fracture to foot, chronic pain, polyarthralgia, carpal tunnel syndrome, arthropathy, chronic neck and shoulder pain, spine pain Neurological History: Reports: Headaches, Chronic, Migraines Other Neuro History: fibromyalgia, chronic pain -neck/back/lower legs, migraines with aura, memory impairments Psychiatric History: Reports: Anxiety, Depression Other Psychiatric History: fatigue, heterozygous MTHFR mutation [id number], chronic pain Endocrine/Metabolic History: Reports: Obesity/BMI 30+, Vitamin D Deficiency Other Endocrine/Metabolic History: cushingoid facies Hematologic History: Reports: B12 Deficiency, Iron Deficiency Other Hematologic History: hypokalemia, iron deficiency, vitamin b 12 deficiency, vitamin D deficiency, Heterozygous MTHFR mutation [id number] Immunologic History: Reports: None Oncologic (Cancer) History: Reports: None Dermatologic History: Reports: Seborrheic Dermatitis Other Dermatologic History: seborrheic keratosis, nevus, rash, seborrheic dermatitis, hx of candidiasis, hand dermatitis, neoplasm of skin, skin ulcer, surgical wound infection, viral warts - Infectious Disease History Infectious Disease History: Reports: Chicken Pox - Past Surgical History Head Surgeries/Procedures: Reports: None HEENT Surgical History: Reports: Naso-Sinus Surgery Other HEENT Surgeries/Procedures: Deviated septum repair, sinus surgery Cardiovascular Surgical History: Reports: None Respiratory Surgical History: Reports: None GI Surgical History: Reports: Cholecystectomy, Colonoscopy, EGD Other GI Surgeries/Procedures: anal fistulotomy with botox injection Female Surgical History: Reports: Breast Reduction, Hysterectomy, Kidney stone extraction, Lithotripsy/ESWL Endocrine Surgical History: Reports: None Neurological Surgical History: Reports: None Musculoskeletal Surgical History: Reports: None Oncologic Surgical History: Reports: None Dermatological Surgical History: Reports: None Social & Family History - Family History Family Medical History: Noncontributory - Tobacco Use Smoking Status *Q: Unknown Ever Smoked - Caffeine Use Caffeine Use: Reports: Tea Other Caffeine Use: rarely on the soda - Living Situation & Occupation Living situation: Reports: , with Spouse Occupation: Unemployed ED ROS GENERAL - Review of Systems Review Of Systems: See Below Constitutional: Reports: Malaise, Weakness, Fatigue, Decreased Appetite. Denies: Fever, Chills HEENT: Reports: Glasses Respiratory: Reports: No Symptoms Cardiovascular: Reports: No Symptoms Endocrine: Reports: Fatigue GI/Abdominal: Reports: Abdominal Pain, Diarrhea, Nausea (See history of present illness.), Vomiting ( Profuse nausea and diarrhea and vomiting.) : Reports: No Symptoms Musculoskeletal: Reports: Neck Pain Skin: Reports: No Symptoms Neurological: Reports: No Symptoms Psychiatric: Reports: No Symptoms Hematologic/Lymphatic: Reports: No Symptoms Immunologic: Reports: No Symptoms ED EXAM, GI/ABD - Physical Exam Exam: See Below Exam Limited By: Uncooperative (He is in a good deal of pain and finding it dif ficult to cooperate with examination.) General Appearance: Alert, Moderate Distress (Writhing in bed), Other (Temperature is 36.1. She appears slightly pallid. Pulse is 60 and sinus respiratory is 13 BP 91/66 with pulse ox 100% room air) Eyes: Bilateral: Normal Appearance Throat/Mouth: Normal Inspection (No scleral icterus or blepharal pallor.), Normal Lips, Normal Oropharynx Head: Atraumatic, Normocephalic Respiratory/Chest: No Respiratory Distress, Lungs Clear, Normal Breath Sounds, No Accessory Muscle Use Cardiovascular: Normal Peripheral Pulses, Regular Rate, Rhythm, No Edema, No Murmur, No Rub GI/Abdominal Exam: Soft (Bowel sounds are quite active in all 4 quadrants.), No Organomegaly, No Mass, Pelvis Stable, Tender, Abnormal Bowel Sounds. No: Guarding, Rigid (Tender in the epigastrium with no rebound or guarding), Rebound Extremities: Normal Inspection, Normal Range of Motion, Non-Tender, No Pedal Edema Neurological: Alert, Oriented, CN II-XII Intact, Normal Cognition, Normal Gait Psychiatric: Anxious, Other (Symptoms are dramatic in her symptom presentation. Appears to be in a good deal of pain) Skin Exam: Warm, Dry, Pallor. No: Diaphoretic Course - Vital Signs Last Recorded V/S: Last Vital Signs Temp 36.1 C 12/29/19 19:41 Pulse 68 12/29/19 19:41 Resp 13 12/29/19 19:41 BP 91/66 12/29/19 19:41 Pulse Ox 100 12/29/19 19:41 - Orders/Labs/Meds Orders: Active Orders 24 hr Category Date Time Status Dextrose 5%-Lactated Ringers 1,000 ml Med 12/29/19 20:00 Active IV ASDIRECTED Medication Orders Dextrose/Lactated Ringer's (Dextrose 5%-Lactated Ringers) 1,000 mls @ 999 mls/hr IV ASDIRECTED [place] Last Admin: 12/29/19 20:09 Dose: 999 mls/hr Documented by: BRITT Meds: Medications Generic Name Dose Route Start Last Admin Trade Name Freq PRN Reason Stop Dose Admin Dextrose/Lactated Ringer's 1,000 mls @ 999 mls/hr 12/29/19 20:00 12/29/19 20:09 Dextrose 5%-Lactated Ringers IV 999 mls/hr ASDIRECTED [place] Administration Discontinued Medications Generic Name Dose Route Start Last Admin Trade Name Sandi PRJuanita Reason Stop Dose Admin Diphenhydramine HCl 25 mg 12/29/19 20:01 12/29/19 20:10 Benadryl IVPUSH 12/29/19 20:02 25 mg ONETIME ONE Administration Promethazine HCl 25 mg/ Sodium 51 mls @ 100 mls/hr 12/29/19 20:01 12/29/19 20:09 Chloride IV 12/29/19 20:31 100 mls/hr ONETIME ONE Administration Lorazepam 1 mg 12/29/19 21:27 12/29/19 21:32 Ativan IV 12/29/19 21:28 1 mg ONETIME ONE Administration Ondansetron HCl 4 mg 12/29/19 21:28 12/29/19 21:34 Zofran IVPUSH 12/29/19 21:29 4 mg ONETIME ONE Administration Ondansetron HCl 4 mg 12/29/19 22:45 Zofran Odt PO 12/29/19 22:46 ONETIME ONE - Radiology Interpretation Free Text/Narrative:: 39-year-old female presents to the ED with acute onset of nausea vomiting and prolific diarrhea after eating fried eggs for supper tonight. She states she does not eat breakfast or dinner and usually only eats once daily. She had a similar event last night but not near as severe. She has several food allergies but eggs are not listed as 1 of them. At present she is extremely nauseated with stomach contractions causing pain. She requests medication to help with the nausea but no pain medication as it usually makes the nausea even worse. Plan IV will be D5 Ringer's lactate at open. We will give Phenergan 25 mg IV over 15 minutes and Benadryl 25 mg IV to ensure no dystonic reaction occurs since she did take a Zofran 4 mg sublingual before coming to the ED. No labs will be obtained. - Re-Assessments/Exams Free Text/Narrative Re-Assessment/Exam: 12/29/19 21:28 patient is not vomiting anymore but she still burping and still has waves of nausea in her upper abdomen. The Phenergan has been in for about 45 minutes and should be working well. Going to give her some Ativan 1 mg IV and Zofran 4 mg IV to further alleviate nausea. Departure - Departure Time of Disposition: 22:59 Disposition: Home, Self-Care 01 Condition: Fair Clinical Impression: Intractable nausea and vomiting - Discharge Information *PRESCRIPTION DRUG MONITORING PROGRAM REVIEWED*: Not Applicable *COPY OF PRESCRIPTION DRUG MONITORING REPORT IN PATIENT JOSE: Not Applicable Prescriptions: Ondansetron [Zofran] 4 mg BUCCAL Q6H PRN #10 tab PRN Reason: nausea or vomiting Instructions: Nausea and Vomiting, Adult, [id number], Abdominal Pain, Adult, [id number] Referrals: PCP,None [Primary Care Provider] - Forms: ED Department Discharge, ED Return to Work/School Form Additional Instructions: Evaluation in the emergency room tonight in regards to precipitous nausea and vomiting with intractable vomiting after eating fried eggs for supper tonight. You identified that you had similar type problems yesterday but not to the same severity. You also developed significant diarrhea suggesting possible food allergy. You were treated with intravenous Phenergan 25 mg to arrest vomiting with Benadryl 25 mg IV to prevent any dystonic reaction since you had taken a Zofran tablet at home prior to coming to the ED. Since you were continued to have dry heaves an hour later you were given Zofran 4 mg IV and Ativan 1 mg IV to further alleviate nausea and vomiting. Suggest home to sleep and resume clear fluids tomorrow. Suggest likely staying home from work tomorrow until you can be sure that she can tolerate clear fluids and a regular diet. I did write a prescription for Zofran tablets that can be taken sublingually 1 tablet every 4 hours as necessary for nausea relief. 1 tablet will be sent home with you tonight in case you need it during the night to alleviate further nausea. Follow-up with personal care physician if similar problems continue. Sepsis Event Note (ED) - Evaluation Sepsis Screening Result: No Definite Risk - Focused Exam Vital Signs: Vital Signs Temp Pulse Resp BP Pulse Ox 12/29/19 19:41 36.1 C 68 13 91/66 100 - My Orders Last 24 Hours: My Active Orders 12/29/19 20:00 Dextrose 5%-Lactated Ringers 1,000 ml IV ASDIRECTED - Assessment/Plan Last 24 Hours: My Active Orders 12/29/19 20:00 Dextrose 5%-Lactated Ringers 1,000 ml IV ASDIRECTED
[2019-12-29] MEDS ORDERED: LORazepam 2 MG/ML SDV IV ONE (21:27)
[2019-12-29] MEDS ORDERED: Ondansetron 4 MG/2 ML SDV IVPUSH ONE (21:28)
[2019-12-29] MEDS ORDERED: Ondansetron 4 MG Tab.DIS PO ONE (22:45)
== END 2019-12-29 23:17 | disposition home or self-care (01) ==
LOC: JD.ED 19:18
DX: R11.2 Nausea with vomiting, unspecified (principal); R10.13 Epigastric pain; R19.7 Diarrhea, unspecified; I10 Essential (primary) hypertension; E66.9 Obesity, unspecified; Z90.49 Acquired absence of other specified parts of digestive tract; Z90.710 Acquired absence of both cervix and uterus; Z88.1 Allergy status to other antibiotic agents; Z88.2 Allergy status to sulfonamides; Z88.0 Allergy status to penicillin; Z91.040 Latex allergy status; Z88.8 Allergy status to other drugs, medicaments and biological substances
CPT/HCPCS: 96361; 96365; 96375; 99283; A9270; J1200; J2060; J2405; J2550; J7050; J7121

== ENCOUNTER 2020-10-07 18:47 | Emergency (ER) | payer MEDICAID ==
[2020-10-07 18:56] VITALS: BP 110/82; PULSE 89
[2020-10-07] MEDS ORDERED: HYDROmorphone 1 MG/ML Syringe IVPUSH STA (19:28)
[2020-10-07] MEDS ORDERED: Ondansetron 4 MG/2 ML SDV IVPUSH ONE ×2 (19:28→20:26)
[2020-10-07] MEDS ORDERED: Sodium Chloride 0.9% 1,000 ML IV SCH (19:30)
--- NOTE | 2020-10-07 19:35 | EDM.PDOC ---
ED HPI GENERAL MEDICAL PROBLEM - General Chief Complaint: Abdominal Pain Stated Complaint: abdominal pain Time Seen by Provider: 10/07/20 19:10 Source of Information: Reports: Patient, Family () History Limitations: Reports: No Limitations - History of Present Illness INITIAL COMMENTS - FREE TEXT/NARRATIVE: Mrs. Trevino is a 40-year-old woman who now presents the ED stating that she developed sudden-onset right-sided abdominal pain around 18:30 this evening, which subsequently radiated to her back and across her entire abdomen. She is unable to describe the character of the pain. She is unable to tell me if it is constant, waxing and waning, or intermittent. She states that it feels better if she presses on her abdomen. She has associated nausea and vomiting, but no recent fever or urinary symptoms. She is unable to say if she has had recent constipation or diarrhea. Medical records indicate that the patient has been seen in this ED on numerous occasions for abdominal pain, however, the patient is unable to say whether or not her current pain is similar to prior pains, stating that she cannot remember prior pain. The patient did not take any yujf-shh-ccwvpxc or home remedies prior to coming to the ED. Here in the ED, the patient is found to be hemodynamically stable, afebrile, saturating 99% on room air. She is lying on her right side, taking significant time to answer questions, but then not answering my questions directly, instead, telling me something unrelated to my question. Obtaining a history is very difficult, as she is quite dramatic. She does not appear to be in acute distress. Due to the patient's indirect answering, an accurate recent review of systems is not obtainable. I reviewed the PMHx/PSHx/SocHx, which was reviewed with the patient by the RN. The patient does not have a PCP. Abdominal Pain Score (Numeric/FACES): 10 - Related Data Allergies Allergy/AdvReac Type Severity Reaction Status Date / Time Cephalosporins Allergy Severe Cannot Verified 10/07/20 18:56 Remember Penicillins Allergy Severe Hives Verified 10/07/20 18:56 Sulfa (Sulfonamide Allergy Severe Hives Verified 10/07/20 18:56 Antibiotics) latex AdvReac Severe Decreased Verified 10/07/20 18:56 Urine Output metoclopramide HCl AdvReac Severe Diarrhea Verified 10/07/20 18:56 [From Reglan] sertraline HCl [From Zoloft] AdvReac Severe Dizziness Verified 10/07/20 18:56 Home Meds: Home Meds Acetaminophen/oxyCODONE [Percocet 325-5 MG] 1 - 2 tab PO Q6H PRN #20 tab 10/07/20 [Rx] Non-Formulary Medication [NF Drug] 1 dose PO DAILY 10/07/20 [History] Ondansetron [Zofran ODT] 1 tab PO Q8H PRN #10 tab.dis 10/07/20 [Rx] Tamsulosin [Flomax] 1 cap PO QPM PRN #10 cap.er 10/07/20 [Rx] Past Medical History HEENT History: Reports: Allergic Rhinitis, Impaired Vision, Sinusitis Other HEENT History: Wears glasses, nasal ulcer Cardiovascular History: Reports: Hypertension Other Cardiovascular History: tachycardia, edema Respiratory History: Reports: Other (See Below) Other Respiratory History: Severe snoring [negative sleep study] Gastrointestinal History: Reports: Chronic Constipation, Chronic Diarrhea, Gastritis, GERD, Hemorrhoids, Irritable Bowel Syndrome, PUD Other Gastrointestinal History: nausea and vomitting, diarrhea, peptic ulcer, transaminitis - drug-induced elev. LFT, rectal bleeding, anal fissure, bloating and cramps, gastroenteritis Genitourinary History: Reports: Renal Calculus, UTI, Recurrent, Other (See Below) Other Genitourinary History: bladder spasms DRUG SAFETY ASSOCIATE History: Reports: Endometriosis Other DRUG SAFETY ASSOCIATE History: menorrhagia, pelvic pain, 3 surgeries for endometriosis, breast swelling, candidasis of breast, dysmenorrhea, gential herpes, irregular menses, breast hematoma Musculoskeletal History: Reports: Fracture, Fibromyalgia, Neck Pain, Chronic, Other (See Below) Other Musculoskeletal History: hx of fracture to foot, chronic pain, polyarthralgia, carpal tunnel syndrome, arthropathy, chronic neck and shoulder pain, spine pain Neurological History: Reports: Headaches, Chronic, Migraines Other Neuro History: fibromyalgia, chronic pain -neck/back/lower legs, migraines with aura, memory impairments Psychiatric History: Reports: Anxiety, Depression Other Psychiatric History: fatigue, heterozygous MTHFR mutation [id number], chronic pain Endocrine/Metabolic History: Reports: Obesity/BMI 30+, Vitamin D Deficiency Other Endocrine/Metabolic History: cushingoid facies Hematologic History: Reports: B12 Deficiency, Iron Deficiency Other Hematologic History: hypokalemia, iron deficiency, vitamin b 12 deficiency, vitamin D deficiency, Heterozygous MTHFR mutation [id number] Immunologic History: Reports: None Oncologic (Cancer) History: Reports: None Dermatologic History: Reports: Seborrheic Dermatitis Other Dermatologic History: seborrheic keratosis, nevus, rash, seborrheic dermatitis, hx of candidiasis, hand dermatitis, neoplasm of skin, skin ulcer, surgical wound infection, viral warts - Infectious Disease History Infectious Disease History: Reports: Chicken Pox - Past Surgical History Head Surgeries/Procedures: Reports: None HEENT Surgical History: Reports: Naso-Sinus Surgery Other HEENT Surgeries/Procedures: Deviated septum repair, sinus surgery Cardiovascular Surgical History: Reports: None Respiratory Surgical History: Reports: None GI Surgical History: Reports: Cholecystectomy, Colonoscopy, EGD Other GI Surgeries/Procedures: anal fistulotomy with botox injection Female Surgical History: Reports: Breast Reduction, Hysterectomy, Kidney s tone extraction, Lithotripsy/ESWL Endocrine Surgical History: Reports: None Neurological Surgical History: Reports: None Musculoskeletal Surgical History: Reports: None Oncologic Surgical History: Reports: None Dermatological Surgical History: Reports: None Social & Family History - Family History Family Medical History: No Pertinent Family History - Tobacco Use Tobacco Use Status *Q: Never Tobacco User Second Hand Smoke Exposure: No - Caffeine Use Caffeine Use: Reports: None Other Caffeine Use: rarely on the soda - Recreational Drug Use Recreational Drug Use: Yes Recreational Drug Type: Reports: Marijuana/Hashish Recreational Drug Use Frequency: Daily - Living Situation & Occupation Living situation: Reports: , with Spouse Occupation: Unemployed ED ROS GENERAL - Review of Systems Review Of Systems: Unable To Obtain Reason Not Obtained: Poor historian ED EXAM, GI/ABD - Physical Exam Exam: See Below Exam Limited By: Uncooperative (Patient remained on right side) General Appearance: Alert, WD/WN Eyes: Bilateral: Normal Appearance, EOMI Ears: Normal External Exam, Hearing Grossly Normal Nose: Normal Inspection Throat/Mouth: Normal Inspection, Normal Lips, Normal Voice, No Airway Compromise Head: Atraumatic, Normocephalic Neck: Normal Inspection, Full Range of Motion Respiratory/Chest: No Respiratory Distress, Lungs Clear, Normal Breath Sounds, No Accessory Muscle Use Cardiovascular: Normal Peripheral Pulses, Regular Rate, Rhythm, No Edema, No Gallop, No JVD, No Murmur, No Rub GI/Abdominal Exam: Normal Bowel Sounds, Soft, No Organomegaly, No Distention, No Abnormal Bruit, No Mass, Tender (? right side?) Back Exam: Normal Inspection, Full Range of Motion, NT Extremities: Normal Inspection, Normal Range of Motion, No Pedal Edema, Normal Capillary Refill Neurological: Alert, Oriented, No Motor/Sensory Deficits Psychiatric: Anxious Skin Exam: Warm, Dry, Intact, Normal Color, No Rash Course - Vital Signs Last Recorded V/S: Last Vital Signs Temp 36.4 C 10/07/20 18:55 Pulse 89 10/07/20 18:55 Resp 20 10/07/20 18:55 BP 110/82 10/07/20 18:55 Pulse Ox 99 10/07/20 18:55 - Orders/Labs/Meds Orders: Active Orders 24 hr Category Date Time Status Abdomen Pelvis w Cont [CT] Stat Exams 10/07/20 19:28 Taken CULTURE URINE [MREF] Stat Lab 10/07/20 19:08 Received Labs: Laboratory Tests 10/07/20 10/07/20 10/07/20 Range/Units 19:05 19:05 19:08 WBC 8.00 (3.98-10.04) K/mm3 RBC 4.50 (3.98-5.22) M/mm3 Hgb 13.7 (11.2-15.7) gm/dl Hct 42.4 (34.1-44.9) % MCV 94.2 D (79.4-94.8) fl MCH 30.4 (25.6-32.2) pg MCHC 32.3 (32.2-35.5) g/dl RDW Std Deviation 42.9 (36.4-46.3) fL Plt Count 306 (182-369) K/mm3 MPV 11.8 (9.4-12.3) fl Neutrophils % (Manual) 64 H (40-60) % Band Neutrophils % 0 (0-10) % Lymphocytes % (Manual) 31 (20-40) % Atypical Lymphs % 0 % Monocytes % (Manual) 3 (2-10) % Eosinophils % (Manual) 2 (0.7-5.8) % Basophils % (Manual) 0 L (0.1-1.2) Platelet Estimate Adequate RBC Morph Comment Normal Sodium 141 (136-145) mEq/L Potassium 4.3 (3.5-5.1) mEq/L Chloride 104 (98-107) mEq/L Carbon Dioxide 27 (21-32) mEq/L Anion Gap 14.3 (5-15) BUN 11 (7-18) mg/dL Creatinine 0.8 (0.55-1.02) mg/dL Est Cr Clr Drug Dosing 76.55 mL/min Estimated GFR (MDRD) > 60 (>60) mL/min BUN/Creatinine Ratio 13.8 L (14-18) Glucose 107 H (70-99) mg/dL Calcium 8.3 L (8.5-10.1) mg/dL Magnesium 1.9 (1.8-2.4) mg/dL Total Bilirubin 0.5 (0.2-1.0) mg/dL AST 13 L (15-37) U/L ALT 18 (14-59) U/L Alkaline Phosphatase 42 L (46-116) U/L Total Protein 7.6 (6.4-8.2) g/dl Albumin 4.0 (3.4-5.0) g/dl Globulin 3.6 gm/dL Albumin/Globulin Ratio 1.1 (1-2) Lipase 127 (73-393) U/L Urine Color Dark yellow (Yellow) Urine Appearance Cloudy H (Clear) Urine pH 6.0 (5.0-8.0) Ur Specific Stephan > or = 1.030 (1.005-1.030) Urine Protein 2+ H (Negative) Urine Glucose (UA) Negative (Negative) Urine Ketones Negative (Negative) Urine Occult Blood 3+ H (Negative) Urine Nitrite Negative (Negative) Urine Bilirubin Negative (Negative) Urine Urobilinogen 0.2 (0.2-1.0) Ur Leukocyte Esterase Negative (Negative) Urine RBC >100 H (0-5) /hpf Urine WBC 0-5 (0-5) /hpf Ur Squamous Epith Cells 5-10 H (0-5) /hpf Urine Bacteria Many H (FEW) /hpf Urine Mucus Few (FEW) /hpf Meds: Medications Discontinued Medications Generic Name Dose Route Start Last Admin Trade Name Freq PRN Reason Stop Dose Admin Al Hydroxide/Mg Hydroxide 30 0 ml 10/07/20 20:26 10/07/20 20:55 ml/ Lidocaine HCl 15 ml PO 10/07/20 20:27 45 ml ONETIME STA Administration Fluconazole 100 mg 10/07/20 23:05 10/07/20 23:13 Fluconazole 100 Mg Tab PO 10/07/20 23:06 100 mg ONETIME ONE Administration Hydromorphone HCl 1 mg 10/07/20 19:28 10/07/20 19:46 Hydromorphone 1 Mg/Ml Syringe IVPUSH 10/07/20 19:29 1 mg ONETIME STA Administration Hydromorphone HCl 1 mg 10/07/20 22:54 10/07/20 23:14 Hydromorphone 1 Mg/Ml Syringe IVPUSH 10/07/20 22:55 1 mg ONETIME ONE Administration Sodium Chloride 1,000 mls @ 150 mls/hr 10/07/20 19:30 10/07/20 19:46 Normal Saline IV 150 mls/hr ASDIRECTED [place] Administration Nitrofurantoin Macrocrystals 100 mg 10/07/20 20:58 10/07/20 21:37 Nitrofurantoin Monohydrate/Macrocrystalline 100 Mg Cap PO 10/07/20 20:59 100 mg ONETIME STA Administration Ondansetron HCl 4 mg 10/07/20 19:28 10/07/20 19:46 Ondansetron 4 Mg/2 Ml Sdv IVPUSH 10/07/20 19:29 4 mg ONETIME ONE Administration Ondansetron HCl 4 mg 10/07/20 20:26 10/07/20 20:55 Ondansetron 4 Mg/2 Ml Sdv IVPUSH 10/07/20 20:27 4 mg ONETIME ONE Administration Sucralfate 1 gm 10/07/20 20:26 10/07/20 20:55 Sucralfate Suspension 1 Gm/10 Ml Cup PO 10/07/20 20:27 1 gm ONETIME ONE Administration Tamsulosin HCl 0.4 mg 10/07/20 22:54 10/07/20 23:13 Tamsulosin 0.4 Mg Cap.Er PO 10/07/20 22:55 0.4 mg ONETIME ONE Administration - Re-Assessments/Exams Free Text/Narrative Re-Assessment/Exam: 10/07/20 19:30 As above, the patient developed sudden-onset right-sided abdominal pain around 18:30 this evening, which then spread to her back and across her entire abdomen. She has had nausea and vomiting. It is unclear if she has had constipation or diarrhea. No recent fever, no current urinary symptoms. She is unable to describe the character of the pain, or whether it has been constant, waxing and waning, or intermittent. She states that she feels better if she presses on her abdomen, but is unclear if there are any other modifiers. While the patient has been to this ED on numerous occasions with abdominal pain, the patient states that she is unable to say whether or not she has had this type of pain before, because she is unable to remember prior pain. On physical exam, the patient may have right-sided abdominal tenderness, although that is unclear, as well. Of particular interest, the patient mentioned that she ordinarily likes to treat her abdominal pain by getting into a hot shower, and she mentioned that she has medical marijuana. This suggests that her symptoms may be due to cannabis hyperemesis syndrome. For today's purposes, I have ordered a work-up and includes several blood tests, a urinalysis by quick catheter, and a CT of the abdomen and pelvis with oral and IV contrast. In the meantime, the patient will be given IV Dilaudid, IV Zofran, and IV fluid. 10/07/20 20:27 Notified by Esmer CARBONE that the patient is still nauseated. The patient told Esmer that a medicine that she had previously been given that coat her stomach had worked well in the past. I have therefore ordered a GI cocktail, to be followed by 1 g of oral sucralfate, along with additional IV Zofran. 10/07/20 20:56 The patient's CBC is unremarkable. Her CMP is remarkable for slight hyperglycemia of 107, and is otherwise unremarkable. Her magnesium level is within normal limits at 1.9. Her lipase level is within normal limits at 127. Her urinalysis (collected by clean-catch) is remarkable for cloudy appearance, 3+ occult blood with >100 RBCs, leukocyte esterase negative with 0-5 WBCs, nitrate negative with many bacteria, and 0-5 squamous epithelial cells. Based on the above, I have ordered a urine culture, and will start the patient on nitrofurantoin. 10/07/20 22:51 CT of the abdomen and pelvis with oral and IV contrast is read by [facility] as " Partially obstructing distal right ureteral stone as above. 2. An additional stone is present in the right renal pelvis." 10/07/20 23:06 Test results discussed with the patient (her is no longer present). As above, her symptoms appear to be due to a distal right ureterolith. The body of the report indicates that it is 2 mm, therefore she will most likely pass this on her own. She is to take OTC ibuprofen around the clock, and I will discharge her home with prescriptions for Percocet, tamsulosin, and Zofran. She will be given a strainer, and asked to stay adequately hydrated. If she captures the stone, she should take it to a doctor for analysis. She will be referred to Dr. Alva in the event that she does not pass the stone within the next 2 weeks. The patient stated that because she was given a single dose of nitrofurantoin here, she will be getting a yeast infection, therefore she requested that we give her a dose of Diflucan. I have ordered a 100 mg tablet. Departure - Departure Time of Disposition: 23:08 Disposition: Home, Self-Care 01 Condition: Good Clinical Impression: Ureterolithiasis - Discharge Information *PRESCRIPTION DRUG MONITORING PROGRAM REVIEWED*: Not Applicable *COPY OF PRESCRIPTION DRUG MONITORING REPORT IN PATIENT JOSE: Not Applicable Prescriptions: Tamsulosin [Flomax] 1 cap PO QPM PRN #10 cap.er PRN Reason: Pain Acetaminophen/oxyCODONE [Percocet 325-5 MG] 1 - 2 tab PO Q6H PRN #20 tab PRN Reason: Pain (Severe 7-10) Ondansetron [Zofran ODT] 1 tab PO Q8H PRN #10 tab.dis PRN Reason: Nausea/Vomiting Instructions: Abdominal Pain, Adult, [id number] Referrals: PCP,None [Primary Care Provider] - Bipin Alva MD [Ordering Only Provider] - Forms: ED Department Discharge Additional Instructions: You were seen in the emergency room after developing sudden-onset right-sided abdominal pain that radiated through to your back, then across your entire abdomen, along with nausea vomiting. Work-up in the ER included numerous blood tests, a urinalysis, a urine culture, and a CT of your abdomen and pelvis with oral and IV contrast. The CT scan found a 2 mm stone in your distal right ureter, which is most likely the cause of your symptoms. Stay adequately hydrated, and strain all of your urine. It does not really matter what type of fluid you drink. If you capture the stone, taken it to a doctor for analysis. If they can figure out what type of stone it is, they can give you some advice on what to do to try to prevent the formation of stones in the future. Take ehcm-uhu-tmopkac ibuprofen, 3 to 4 tablets (600-800 mg) up to every 8 hours, with food, [id number], initially, then as needed for discomfort. You may take 1 to 2 tablets of the opioid pain reliever Percocet up to every 6 hours, as needed for pain not relieved by ibuprofen. If you take Percocet, do not drive or operate heavy machinery for 12 hours afterwards. Percocet may cause constipation, so consider taking a stool softener. Take 1 tablet of the anti-spasm medicine tamsulosin (Flomax) every evening, starting tomorrow evening, 10/08/2020, as needed for pain. You may dissolve 1 tablet of the anti-nausea medicine Zofran on your tongue up to every 8 hours, as needed for nausea/vomiting. Based on the size and location of the stone, you will most likely pass it on your own, however, if you continue to have pain for 2 weeks, please follow-up with the Urologist Dr. Bipin Alva, in [place]. Don't forget that [place] is 1 hour ahead of us. If any other problems, please do not hesitate to return to the ER. Sepsis Event Note (ED) - Evaluation Sepsis Screening Result: No Definite Risk - Focused Exam Vital Signs: Vital Signs Temp Pulse Resp BP Pulse Ox 10/07/20 18:55 36.4 C 89 20 110/82 99 - My Orders Last 24 Hours: My Active Orders 10/07/20 19:08 CULTURE URINE [MREF] Stat 10/07/20 19:28 Abdomen Pelvis w Cont [CT] Stat - Assessment/Plan Last 24 Hours: My Active Orders 10/07/20 19:08 CULTURE URINE [MREF] Stat 10/07/20 19:28 Abdomen Pelvis w Cont [CT] Stat
[2020-10-07] MEDS ORDERED: Alum Hydrox/Mag Hydrox/Simeth 30 ML, Lidocaine 2% 15 ML PO STA ×2 (20:26)
[2020-10-07] MEDS ORDERED: Sucralfate Suspension 1 GM/10 ML Cup PO ONE (20:26)
[2020-10-07] MEDS ORDERED: Nitrofurantoin Monohydrate/Macrocrystalline 100 MG Cap PO STA (20:58)
[2020-10-07] MEDS ORDERED: Tamsulosin 0.4 MG Cap.ER PO ONE (22:54)
[2020-10-07] MEDS ORDERED: HYDROmorphone 1 MG/ML Syringe IVPUSH ONE (22:54)
[2020-10-07] MEDS ORDERED: Fluconazole 100 MG Tab PO ONE (23:05)
--- NOTE | 2020-10-08 09:48 | CT ---
CT abdomen and pelvis Technique: Multiple axial sections were obtained from above the dome of the diaphragm inferiorly to the pubic symphysis. Intravenous and oral contrast were utilized. Delayed images were also obtained. Reconstructed coronal and sagittal images were obtained of the abdomen and pelvis. Comparison: Prior CT abdomen and pelvis study of 10/12/19. Findings: Right kidney shows hydronephrosis as well as a dilated ureter. Proximal ureter shows slight inflammatory change. These findings are caused by an obstructing stone within the distal right ureter measuring approximately 2.5-3 mm. This calculus occurs slightly proximal to the UVJ. There is an additional stone being seen within the dilated right renal pelvis which has maximum measurements of about 5 mm. No other abnormal calcifications are seen within the kidneys or ureters. Right kidney shows three low density findings which I believe are due to small cysts. These measure less than 1 cm. Left kidney shows a minimal low density lesion possibly due to an additional small cyst measuring about 3 mm. Pancreas shows no abnormality. Liver shows no focal abnormality. Visualized lung bases show nothing acute. Spleen size is normal. Abdominal aorta shows no aneurysm. No retroperitoneal adenopathy or mesenteric abnormalities are seen. Small fat-containing umbilical hernia is noted. Appendix is seen which is normal. No pelvic mass or adenopathy is seen. Bone window settings were reviewed which show minimal scattered degenerative change with no acute osseous abnormality being identified. Impression: 1. 2.5-3 mm stone within the distal right ureter slightly proximal to the UVJ which causes proximal dilatation of the ureter and right-sided hydronephrosis. 2. Small 5 mm stone within a dilated right renal pelvis. 3. Other findings as noted above which are felt to be incidental. Diagnostic code #3 I agree with preliminary report from [facility], finalized on 10/07/20, 11:43 PM CDT, code 1
== END 2020-10-07 23:30 | disposition home or self-care (01) ==
LOC: JD.ED 18:47
DX: N13.2 Hydronephrosis with renal and ureteral calculous obstruction (principal); I10 Essential (primary) hypertension; E66.9 Obesity, unspecified; Z68.30 Body mass index [BMI] 30.0-30.9, adult; Z88.0 Allergy status to penicillin; Z88.1 Allergy status to other antibiotic agents; Z91.040 Latex allergy status; Z88.2 Allergy status to sulfonamides; Z88.5 Allergy status to narcotic agent; Z88.8 Allergy status to other drugs, medicaments and biological substances
CPT/HCPCS: 36415; 74177; 80053; 81001; 83690; 83735; 85007; 85027; 87086; 96374; 96375; 96376; 99284; A9270; J1170; J2405; J7030

== ENCOUNTER 2020-10-08 10:42 | Emergency (ER) | payer MEDICAID ==
[2020-10-08 10:54] VITALS: BP 144/100; PULSE 100
[2020-10-08] MEDS ORDERED: Ondansetron 4 MG Tab.DIS PO ONE (11:18)
[2020-10-08] MEDS ORDERED: Fluconazole 150 MG Tab PO ONE (11:18)
--- NOTE | 2020-10-08 11:27 | EDM.PDOC ---
ED HPI GENERAL MEDICAL PROBLEM - General Chief Complaint: Flank Pain Stated Complaint: KIDNEY STONE ISSUES Time Seen by Provider: 10/08/20 10:57 Source of Information: Reports: Patient History Limitations: Reports: No Limitations - History of Present Illness INITIAL COMMENTS - FREE TEXT/NARRATIVE: The patient presents with right lank pain and abdominal pain. She was seen here last night and diagnosed with a 2mm kidney stone in the right ureter near the bladder. She was given diflucan and nitrofurantoin last night and she vomited. She did not get her prescriptions filled. She is worried the percocet will cause "gut rot." She is allergic to lots of medicine. She does not think the diflucan stayed down. Onset: Gradual Duration: Day(s): Location: Reports: Abdomen, Back Quality: Reports: Sharp Severity: Moderate Improves with: Reports: None Worsens with: Reports: None Associated Symptoms: Reports: Nausea/Vomiting. Denies: Chest Pain, Cough, Fever/Chills, Headaches, Shortness of Breath Flank Pain Score (Numeric/FACES): 6 - Related Data Allergies Allergy/AdvReac Type Severity Reaction Status Date / Time Cephalosporins Allergy Severe Cannot Verified 10/07/20 18:56 Remember Penicillins Allergy Severe Hives Verified 10/07/20 18:56 Sulfa (Sulfonamide Allergy Severe Hives Verified 10/07/20 18:56 Antibiotics) latex AdvReac Severe Decreased Verified 10/07/20 18:56 Urine Output metoclopramide HCl AdvReac Severe Diarrhea Verified 10/07/20 18:56 [From Reglan] sertraline HCl [From Zoloft] AdvReac Severe Dizziness Verified 10/07/20 18:56 Home Meds: Home Meds Acetaminophen/oxyCODONE [Percocet 325-5 MG] 1 - 2 tab PO Q6H PRN #20 tab 10/07/20 [Rx] Non-Formulary Medication [NF Drug] 1 dose PO DAILY 10/07/20 [History] Ondansetron [Zofran ODT] 1 tab PO Q8H PRN #10 tab.dis 10/07/20 [Rx] Tamsulosin [Flomax] 1 cap PO QPM PRN #10 cap.er 10/07/20 [Rx] Hydrocodone/Acetaminophen [Hydrocodone-Acetamin 5-325 mg] 1 - 2 each PO Q6H PRN #15 tablet 10/08/20 [Rx] Past Medical History HEENT History: Reports: Allergic Rhinitis, Impaired Vision, Sinusitis Other HEENT History: Wears glasses, nasal ulcer Cardiovascular History: Reports: Hypertension Other Cardiovascular History: tachycardia, edema Respiratory History: Reports: Other (See Below) Other Respiratory History: Severe snoring [negative sleep study] Gastrointestinal History: Reports: Chronic Constipation, Chronic Diarrhea, Gastritis, GERD, Hemorrhoids, Irritable Bowel Syndrome, PUD Other Gastrointestinal History: nausea and vomitting, diarrhea, peptic ulcer, transaminitis - drug-induced elev. LFT, rectal bleeding, anal fissure, bloating and cramps, gastroenteritis Genitourinary History: Reports: Renal Calculus, UTI, Recurrent, Other (See Below) Other Genitourinary History: bladder spasms HEALTH AND SAFETY MANAGER History: Reports: Endometriosis Other HEALTH AND SAFETY MANAGER History: menorrhagia, pelvic pain, 3 surgeries for endometriosis, breast swelling, candidasis of breast, dysmenorrhea, gential herpes, irregular menses, breast hematoma Musculoskeletal History: Reports: Fracture, Fibromyalgia, Neck Pain, Chronic, Other (See Below) Other Musculoskeletal History: hx of fracture to foot, chronic pain, polyarthralgia, carpal tunnel syndrome, arthropathy, chronic neck and shoulder pain, spine pain Neurological History: Reports: Headaches, Chronic, Migraines Other Neuro History: fibromyalgia, chronic pain -neck/back/lower legs, migraines with aura, memory impairments Psychiatric History: Reports: Anxiety, Depression Other Psychiatric History: fatigue, heterozygous MTHFR mutation [id number], chronic pain Endocrine/Metabolic History: Reports: Obesity/BMI 30+, Vitamin D Deficiency Other Endocrine/Metabolic History: cushingoid facies Hematologic History: Reports: B12 Deficiency, Iron Deficiency Other Hematologic History: hypokalemia, iron deficiency, vitamin b 12 deficiency, vitamin D deficiency, Heterozygous MTHFR mutation [id number] Immunologic History: Reports: None Oncologic (Cancer) History: Reports: None Dermatologic History: Reports: Seborrheic Dermatitis Other Dermatologic History: seborrheic keratosis, nevus, rash, seborrheic dermatitis, hx of candidiasis, hand dermatitis, neoplasm of skin, skin ulcer, surgical wound infection, viral warts - Infectious Disease History Infectious Disease History: Reports: Chicken Pox - Past Surgical History Head Surgeries/Procedures: Reports: None HEENT Surgical History: Reports: Naso-Sinus Surgery Other HEENT Surgeries/Procedures: Deviated septum repair, sinus surgery Cardiovascular Surgical History: Reports: None Respiratory Surgical History: Reports: None GI Surgical History: Reports: Cholecystectomy, Colonoscopy, EGD Other GI Surgeries/Procedures: anal fistulotomy with botox injection Female Surgical History: Reports: Breast Reduction, Hysterectomy, Kidney stone extraction, Lithotripsy/ESWL Endocrine Surgical History: Reports: None Neurological Surgical History: Reports: None Musculoskeletal Surgical History: Reports: None Oncologic Surgical History: Reports: None Dermatological Surgical History: Reports: None Social & Family History - Family History Family Medical History: No Pertinent Family History - Tobacco Use Tobacco Use Status *Q: Never Tobacco User Second Hand Smoke Exposure: No - Caffeine Use Caffeine Use: Reports: None Other Caffeine Use: rarely on the soda - Recreational Drug Use Recreational Drug Use: Yes Drug Use in Last 12 Months: Yes Recreational Drug Type: Reports: Marijuana/Hashish Recreational Drug Use Frequency: Daily - Living Situation & Occupation Living situation: Reports: , with Spouse Occupation: Unemployed ED ROS GENERAL - Review of Systems Review Of Systems: See Below Constitutional: Reports: No Symptoms HEENT: Reports: No Symptoms Respiratory: Reports: No Symptoms Cardiovascular: Reports: No Symptoms Endocrine: Reports: No Symptoms GI/Abdominal: Reports: Abdominal Pain, Nausea, Vomiting. Denies: Diarrhea : Reports: Flank Pain Musculoskeletal: Reports: No Symptoms Skin: Reports: No Symptoms ED EXAM, GI/ABD - Physical Exam Exam: See Below Exam Limited By: No Limitations General Appearance: Alert, No Apparent Distress Ears: Normal External Exam Nose: Normal Inspection Head: Atraumatic, Normocephalic Neck: Normal Inspection Respiratory/Chest: No Respiratory Distress, Lungs Clear, Normal Breath Sounds Cardiovascular: Regular Rate, Rhythm, No Edema, No Murmur GI/Abdominal Exam: Soft, Non-Tender, No Organomegaly, No Mass Back Exam: Normal Inspection Extremities: Normal Inspection Course - Vital Signs Last Recorded V/S: Last Vital Signs Temp 97 F 10/08/20 10:53 Pulse 100 10/08/20 10:53 Resp 16 10/08/20 10:53 BP 144/100 H 10/08/20 10:53 Pulse Ox 98 10/08/20 10:53 - Orders/Labs/Meds Meds: Medications Discontinued Medications Generic Name Dose Route Start Last Admin Trade Name Freq PRN Reason Stop Dose Admin Fluconazole 150 mg 10/08/20 11:18 Fluconazole 150 Mg Tab PO 10/08/20 11:19 ONETIME ONE Ondansetron HCl 4 mg 10/08/20 11:18 Ondansetron 4 Mg Tab.Dis PO 10/08/20 11:19 ONETIME ONE - Re-Assessments/Exams Free Text/Narrative Re-Assessment/Exam: 10/08/20 11:25 I ordered zofran ODT PO and diflucan 150mg PO. I will switch her from percocet to hydrocodone. Departure - Departure Time of Disposition: 11:25 Disposition: Home, Self-Care 01 Condition: Good Clinical Impression: Ureteric colic, Kidney stone on right side - Discharge Information *PRESCRIPTION DRUG MONITORING PROGRAM REVIEWED*: Not Applicable *COPY OF PRESCRIPTION DRUG MONITORING REPORT IN PATIENT JOSE: Not Applicable Prescriptions: Hydrocodone/Acetaminophen [Hydrocodone-Acetamin 5-325 mg] 1 - 2 each PO Q6H PRN #15 tablet PRN Reason: Pain Referrals: PCP,None [Primary Care Provider] - Additional Instructions: Drink plenty of fluids. Take the flomax daily. Take the zofran every 6 hours as needed for nausea and vomiting. Take tylenol as needed for pain. If that does not help, try the hydrocodone. Take one pill at first with food and see how it makes you feel. Please return if you are worse. Sepsis Event Note (ED) - Evaluation Sepsis Screening Result: No Definite Risk - Focused Exam Vital Signs: Vital Signs Temp Pulse Resp BP Pulse Ox 10/08/20 10:53 97 F 100 16 144/100 H 98
== END 2020-10-08 11:38 | disposition home or self-care (01) ==
LOC: JD.ED 10:42
DX: N20.2 Calculus of kidney with calculus of ureter (principal); I10 Essential (primary) hypertension; E66.9 Obesity, unspecified; Z68.29 Body mass index [BMI] 29.0-29.9, adult; Z88.1 Allergy status to other antibiotic agents; Z88.0 Allergy status to penicillin; Z88.2 Allergy status to sulfonamides; Z91.040 Latex allergy status; Z88.8 Allergy status to other drugs, medicaments and biological substances
CPT/HCPCS: 99283; A9270

== ENCOUNTER 2020-10-21 05:13 | Emergency (ER) | payer MEDICAID ==
[2020-10-21 05:32] VITALS: BP 150/99; PULSE 109
[2020-10-21] MEDS ORDERED: Ketorolac 30 MG/ML SDV IVPUSH ONE (06:01)
[2020-10-21] MEDS ORDERED: Sodium Chloride 0.9% 1,000 ML IV ONE (06:01)
[2020-10-21] MEDS ORDERED: Ondansetron 4 MG/2 ML SDV IVPUSH ONE (06:01)
[2020-10-21] MEDS ORDERED: Morphine 2 MG/ML SYRINGE IVPUSH ONE ×2 (06:02→08:23)
--- NOTE | 2020-10-21 06:07 | EDM.PDOC ---
<Niki Levi H - Last Filed: 10/21/20 06:35> ED HPI GENERAL MEDICAL PROBLEM - General Chief Complaint: Abdominal Pain Stated Complaint: KIDNEY STONES Time Seen by Provider: 10/21/20 05:34 Source of Information: Reports: Patient History Limitations: Reports: No Limitations - History of Present Illness INITIAL COMMENTS - FREE TEXT/NARRATIVE: Patient is a 40-year-old female who is complaining of having right-sided flank pain that is been going on several weeks. Patient was seen here recently had a CAT scan of her abdomen pelvis which shows a 2 3 mm stone at the right UVJ and a 5 mm stone up in the right renal pelvis. Patient states her pain was well controlled with some hydrocodone and Zofran but symptoms worsened tonight approximate 11:00 and she was unable to sleep and now shows up in the ED complaining of severe pain and hematuria. She denies any dysuria or vaginal discharge. Patient has had numerous surgeries including hysterectomy and cholecystectomy. She still does have her appendix. She denies any fever or shaking chills has had no diarrhea. Patient has been nauseous without vomiting. She states she has had kidney stones in the past and has had renal stents placed to 4 times though the last episode was over 10 years ago. Patient does not have a urologist and likes to treat all of her medical problems which include fibromyalgia and frequent gastritis using natural pathic remedies. Duration: Getting Worse, Waxing/Waning Location: Reports: Abdomen Quality: Reports: Ache, Same as Previous Episode Severity: Severe Improves with: Reports: None Worsens with: Reports: Movement Associated Symptoms: Denies: Chest Pain, Fever/Chills, Rash abdomen Pain Score (Numeric/FACES): 10 - Related Data Allergies Allergy/AdvReac Type Severity Reaction Status Date / Time Cephalosporins Allergy Severe Cannot Verified 10/21/20 05:32 Remember Penicillins Allergy Severe Hives Verified 10/21/20 05:32 Sulfa (Sulfonamide Allergy Severe Hives Verified 10/21/20 05:32 Antibiotics) latex AdvReac Severe Decreased Verified 10/21/20 05:32 Urine Output metoclopramide HCl AdvReac Severe Diarrhea Verified 10/21/20 05:32 [From Reglan] sertraline HCl [From Zoloft] AdvReac Severe Dizziness Verified 10/21/20 05:32 Home Meds: Home Meds Acetaminophen/oxyCODONE [Percocet 325-5 MG] 1 - 2 tab PO Q6H PRN #20 tab 10/07/20 [Rx] Non-Formulary Medication [NF Drug] 1 dose PO DAILY 10/07/20 [History] Ondansetron [Zofran ODT] 1 tab PO Q8H PRN #10 tab.dis 10/07/20 [Rx] Tamsulosin [Flomax] 1 cap PO QPM PRN #10 cap.er 10/07/20 [Rx] Hydrocodone/Acetaminophen [Hydrocodone-Acetamin 5-325 mg] 1 - 2 each PO Q6H PRN #15 tablet 10/08/20 [Rx] Colestipol [Colestid] 1,000 gm PO DAILY #30 bottle 10/21/20 [Rx] Ketorolac [Toradol] 10 mg PO Q6H PRN #8 tab 10/21/20 [Rx] Past Medical History HEENT History: Reports: Allergic Rhinitis, Impaired Vision, Sinusitis Other HEENT History: Wears glasses, nasal ulcer Cardiovascular History: Reports: Hypertension Other Cardiovascular History: tachycardia, edema Respiratory History: Reports: Other (See Below) Other Respiratory History: Severe snoring [negative sleep study] Gastrointestinal History: Reports: Chronic Constipation, Chronic Diarrhea, Gastritis, GERD, Hemorrhoids, Irritable Bowel Syndrome, PUD Other Gastrointestinal History: nausea and vomitting, diarrhea, peptic ulcer, transaminitis - drug-induced elev. LFT, rectal bleeding, anal fissure, bloating and cramps, gastroenteritis Genitourinary History: Reports: Renal Calculus, UTI, Recurrent, Other (See Below) Other Genitourinary History: bladder spasms GARNETTER History: Reports: Endometriosis Other GARNETTER History: menorrhagia, pelvic pain, 3 surgeries for endometriosis, breast swelling, candidasis of breast, dysmenorrhea, gential herpes, irregular menses, breast hematoma Musculoskeletal History: Reports: Fracture, Fibromyalgia, Neck Pain, Chronic, Other (See Below) Other Musculoskeletal History: hx of fracture to foot, chronic pain, polyarthralgia, carpal tunnel syndrome, arthropathy, chronic neck and shoulder pain, spine pain Neurological History: Reports: Headaches, Chronic, Migraines Other Neuro History: fibromyalgia, chronic pain -neck/back/lower legs, migraines with aura, memory impairments Psychiatric History: Reports: Anxiety, Depression Other Psychiatric History: fatigue, heterozygous MTHFR mutation [id number], chronic pain Endocrine/Metabolic History: Reports: Obesity/BMI 30+, Vitamin D Deficiency Other Endocrine/Metabolic History: cushingoid facies Hematologic History: Reports: B12 Deficiency, Iron Deficiency Other Hematologic History: hypokalemia, iron deficiency, vitamin b 12 deficiency, vitamin D deficiency, Heterozygous MTHFR mutation [id number] Immunologic History: Reports: None Oncologic (Cancer) History: Reports: None Dermatologic History: Reports: Seborrheic Dermatitis Other Dermatologic History: seborrheic keratosis, nevus, rash, seborrheic dermatitis, hx of candidiasis, hand dermatitis, neoplasm of skin, skin ulcer, surgical wound infection, viral warts - Infectious Disease History Infectious Disease History: Reports: Chicken Pox - Past Surgical History Head Surgeries/Procedures: Reports: None HEENT Surgical History: Reports: Naso-Sinus Surgery Other HEENT Surgeries/Procedures: Deviated septum repair, sinus surgery Cardiovascular Surgical History: Reports: None Respiratory Surgical History: Reports: None GI Surgical History: Reports: Cholecystectomy, Colonoscopy, EGD Other GI Surgeries/Procedures: anal fistulotomy with botox injection Female Surgical History: Reports: Breast Reduction, Hysterectomy, Kidney stone extraction, Lithotripsy/ESWL Endocrine Surgical History: Reports: None Neurological Surgical History: Reports: None Musculoskeletal Surgical History: Reports: None Oncologic Surgical History: Reports: None Dermatological Surgical History: Reports: None Social & Family History - Family History Family Medical History: No Pertinent Family History - Tobacco Use Tobacco Use Status *Q: Never Tobacco User - Caffeine Use Caffeine Use: Reports: None Other Caffeine Use: rarely on the soda - Recreational Drug Use Recreational Drug Use: No - Living Situation & Occupation Living situation: Reports: , with Spouse Occupation: Unemployed ED ROS GENERAL - Review of Systems Review Of Systems: Comprehensive ROS is negative, except as noted in HPI. ED EXAM, RENAL/ - Physical Exam Exam: See Below Exam Limited By: No Limitations General Appearance: Alert, No Apparent Distress Head: Atraumatic, Normocephalic Neck: Normal Inspection, Supple Respiratory/Chest: No Respiratory Distress, Lungs Clear, Normal Breath Sounds Cardiovascular: Regular Rate, Rhythm, No Edema, No JVD GI/Abdominal: Normal Bowel Sounds, Soft, No Organomegaly, Tender. No: Distended, Guarding, Rigid, Rebound Back Exam: Full Range of Motion, CVA Tenderness (R). No: Paraspinal Tenderness Extremities: Normal Inspection, No Pedal Edema Neurological: Alert, Oriented Psychiatric: Normal Affect Skin Exam: Warm, Dry, No Rash Lymphatic: No Adenopathy Course - Vital Signs Text/Narrative:: Since patient had a recent CT scan that showed a 2 to 3 mm stone on the right UVJ I have not started off by ordering another CAT scan. I will order this if I cannot get her comfortable or if her urine or other lab work is abnormal. Patient is receiving 2 mg of morphine 30 mg of Toradol 4 mg of Zofran and 1 L of IV fluid. Her care will be transferred over to the a.m. emergency medicine physician due to change of shift. Departure - Departure Disposition: Home, Self-Care 01 Clinical Impression: Renal colic on right side, Chronic diarrhea - Discharge Information Prescriptions: Colestipol [Colestid] 1,000 gm PO DAILY #30 bottle Ketorolac [Toradol] 10 mg PO Q6H PRN #8 tab PRN Reason: Renal colic Instructions: Renal Colic, [id number], Diarrhea, Adult, [id number] Referrals: PCP,None [Primary Care Provider] - Forms: ED Department Discharge Additional Instructions: Evaluation in the emergency room this morning in regards to recurrent pain secondary to a right-sided kidney stone in the lower portion of the right ureter. Further pain indicates the stone is slowly moving. The narrowest part of the ureter is where it enters the urinary bladder. Stone is getting hung up at that area. Continues to drink fluids as able. Use hydrocodone 5/3 2 5 mg tablet 1 every 4-6 hours necessary for pain relief. May also use Toradol 10 mg tablet 1 every 6 hours for pain relief. Prescription written for Colestid as we discussed 1 g every night at bedtime for bile salt induced catharsis after having her gallbladder removed. The hope is to reduce diarrhea and have formed stools over the next week to 10 days. This will help you absorb your nutrients through the lower portion of the small bowel. Sepsis Event Note (ED) - Evaluation Sepsis Screening Result: No Definite Risk <Daniel Beavers - Last Filed: 10/21/20 09:16> Course - Vital Signs Last Recorded V/S: Last Vital Signs Temp 35.9 C L 10/21/20 05:27 Pulse 109 H 10/21/20 05:27 Resp 18 10/21/20 05:27 BP 150/99 H 10/21/20 05:27 Pulse Ox 99 10/21/20 05:27 - Orders/Labs/Meds Orders: Active Orders 24 hr Category Date Time Status Peripheral IV Care [RC] . DIRECTED Care 10/21/20 06:03 Active Sodium Chloride 0.9% [Saline Flush] Med 10/21/20 06:02 Active 10 ml FLUSH ASDIRECTED PRN Peripheral IV Insertion Adult [OM.PC] Routine Oth 10/21/20 06:01 Ordered Medication Orders Sodium Chloride (Sodium Chloride 0.9% 10 Ml Syringe) 10 ml FLUSH ASDIRECTED PRN PRN Reason: Keep Vein Open Last Admin: 10/21/20 08:46 Dose: 10 ml Documented by: MARY KATE Admin: 10/21/20 06:12 Dose: 10 ml Documented by: BETITO Labs: Laboratory Tests 10/21/20 10/21/20 10/21/20 Range/Units 05:41 06:24 08:20 WBC 10.04 (3.98-10.04) K/mm3 RBC 4.42 (3.98-5.22) M/mm3 Hgb 13.3 (11.2-15.7) gm/dl Hct 41.3 (34.1-44.9) % MCV 93.4 (79.4-94.8) fl MCH 30.1 (25.6-32.2) pg MCHC 32.2 (32.2-35.5) g/dl RDW Std Deviation 44.2 (36.4-46.3) fL Plt Count 290 (182-369) K/mm3 MPV 12.0 (9.4-12.3) fl Neutrophils % (Manual) 73 H (40-60) % Band Neutrophils % 3 (0-10) % Lymphocytes % (Manual) 14 L (20-40) % Atypical Lymphs % 0 % Monocytes % (Manual) 8 (2-10) % Eosinophils % (Manual) 2 (0.7-5.8) % Basophils % (Manual) 0 L (0.1-1.2) Platelet Estimate Adequate Hypochromasia 1+ slight Sickle Cells Stomatocytes 1+ slight RBC Morph Comment Not Reportable Sodium 143 (136-145) mEq/L Potassium 4.0 (3.5-5.1) mEq/L Chloride 107 (98-107) mEq/L Carbon Dioxide 27 (21-32) mEq/L Anion Gap 13.0 (5-15) BUN 11 (7-18) mg/dL Creatinine 1.0 (0.55-1.02) mg/dL Est Cr Clr Drug Dosing 63.93 mL/min Estimated GFR (MDRD) > 60 (>60) mL/min BUN/Creatinine Ratio 11.0 L (14-18) Glucose 119 H (70-99) mg/dL Calcium 8.4 L (8.5-10.1) mg/dL Total Bilirubin 0.4 (0.2-1.0) mg/dL AST 13 L (15-37) U/L ALT 18 (14-59) U/L Alkaline Phosphatase 34 L (46-116) U/L Total Protein 6.2 L (6.4-8.2) g/dl Albumin 3.3 L (3.4-5.0) g/dl Globulin 2.9 gm/dL Albumin/Globulin Ratio 1.1 (1-2) Urine Color Light yellow (Yellow) Urine Appearance Clear (Clear) Urine pH 7.0 (5.0-8.0) Ur Specific [place] 1.020 (1.005-1.030) Urine Protein Negative (Negative) Urine Glucose (UA) Negative (Negative) Urine Ketones Negative (Negative) Urine Occult Blood 2+ H (Negative) Urine Nitrite Negative (Negative) Urine Bilirubin Negative (Negative) Urine Urobilinogen 0.2 (0.2-1.0) Ur Leukocyte Esterase Negative (Negative) Urine HCG, Qual (NEGATIVE) 10/21/20 Range/Units 08:20 WBC (3.98-10.04) K/mm3 RBC (3.98-5.22) M/mm3 Hgb (11.2-15.7) gm/dl Hct (34.1-44.9) % MCV (79.4-94.8) fl MCH (25.6-32.2) pg MCHC (32.2-35.5) g/dl RDW Std Deviation (36.4-46.3) fL Plt Count (182-369) K/mm3 MPV (9.4-12.3) fl Neutrophils % (Manual) (40-60) % Band Neutrophils % (0-10) % Lymphocytes % (Manual) (20-40) % Atypical Lymphs % % Monocytes % (Manual) (2-10) % Eosinophils % (Manual) (0.7-5.8) % Basophils % (Manual) (0.1-1.2) Platelet Estimate Hypochromasia Sickle Cells Stomatocytes RBC Morph Comment Sodium (136-145) mEq/L Potassium (3.5-5.1) mEq/L Chloride (98-107) mEq/L Carbon Dioxide (21-32) mEq/L Anion Gap (5-15) BUN (7-18) mg/dL Creatinine (0.55-1.02) mg/dL Est Cr Clr Drug Dosing mL/min Estimated GFR (MDRD) (>60) mL/min BUN/Creatinine Ratio (14-18) Glucose (70-99) mg/dL Calcium (8.5-10.1) mg/dL Total Bilirubin (0.2-1.0) mg/dL AST (15-37) U/L ALT (14-59) U/L Alkaline Phosphatase (46-116) U/L Total Protein (6.4-8.2) g/dl Albumin (3.4-5.0) g/dl Globulin gm/dL Albumin/Globulin Ratio (1-2) Urine Color (Yellow) Urine Appearance (Clear) Urine pH (5.0-8.0) Ur Specific [place] (1.005-1.030) Urine Protein (Negative) Urine Glucose (UA) (Negative) Urine Ketones (Negative) Urine Occult Blood (Negative) Urine Nitrite (Negative) Urine Bilirubin (Negative) Urine Urobilinogen (0.2-1.0) Ur Leukocyte Esterase (Negative) Urine HCG, Qual Negative (NEGATIVE) Meds: Medications Generic Name Dose Route Start Last Admin Trade Name Freq PRN Reason Stop Dose Admin Sodium Chloride 10 ml 10/21/20 06:02 10/21/20 08:46 Sodium Chloride 0.9% 10 Ml Syringe FLUSH 10 ml ASDIRECTED PRN Administration Keep Vein Open Discontinued Medications Generic Name Dose Route Start Last Admin Trade Name Freq PRN Reason Stop Dose Admin Sodium Chloride 1,000 mls @ 1,000 mls/hr 10/21/20 06:01 10/21/20 06:11 Normal Saline IV 10/21/20 07:00 1,000 mls/hr ONETIME ONE Administration Ketorolac Tromethamine 30 mg 10/21/20 06:01 10/21/20 06:11 Ketorolac 30 Mg/Ml Sdv IVPUSH 10/21/20 06:02 30 mg ONETIME ONE Administration Morphine Sulfate 2 mg 10/21/20 06:02 10/21/20 06:11 Morphine 2 Mg/Ml Syringe IVPUSH 10/21/20 06:03 2 mg ONETIME ONE Administration Morphine Sulfate 2 mg 10/21/20 08:23 10/21/20 08:45 Morphine 2 Mg/Ml Syringe IVPUSH 10/21/20 08:24 2 mg ONETIME ONE Administration Ondansetron HCl 4 mg 10/21/20 06:01 10/21/20 06:11 Ondansetron 4 Mg/2 Ml Sdv IVPUSH 10/21/20 06:02 4 mg ONETIME ONE Administration - Re-Assessments/Exams Free Text/Narrative Re-Assessment/Exam: 10/21/20 08:10: Patient reports pain is down to a 4 out of 10. No longer feeling nauseated. We will repeat morphine 2 mg IV. 10/21/20 08:46 Urinalysis reveals 2+ occult blood but no signs of infection. Prescription written for Colestid 1 g at bedtime for suspect bile salt catharsis due to chronic diarrhea postcholecystectomy. Departure - Departure Time of Disposition: 08:44 Condition: Fair - Discharge Information *PRESCRIPTION DRUG MONITORING PROGRAM REVIEWED*: Not Applicable *COPY OF PRESCRIPTION DRUG MONITORING REPORT IN PATIENT JOSE: Not Applicable Sepsis Event Note (ED) - Focused Exam Vital Signs: Vital Signs Temp Pulse Resp BP Pulse Ox 10/21/20 05:27 35.9 C L 109 H 18 150/99 H 99
[2020-10-21] MEDS: Sodium Chloride 0.9% 10 ML Syringe FLUSH PRN ×2 (06:12→08:46)
== END 2020-10-21 09:30 | disposition home or self-care (01) ==
LOC: JD.ED 05:13
DX: K52.9 Noninfective gastroenteritis and colitis, unspecified (principal); N23 Unspecified renal colic; I10 Essential (primary) hypertension; E66.9 Obesity, unspecified; Z68.30 Body mass index [BMI] 30.0-30.9, adult; Z88.0 Allergy status to penicillin; Z88.1 Allergy status to other antibiotic agents; Z88.2 Allergy status to sulfonamides; Z91.040 Latex allergy status; Z88.8 Allergy status to other drugs, medicaments and biological substances
CPT/HCPCS: 36415; 80053; 81003; 81025; 85007; 85027; 96374; 96375; 96376; 99284; J1885; J2270; J2405; J7030

== ENCOUNTER 2020-10-30 16:29 | Emergency (ER) | payer MEDICAID, SELFPAY ==
[2020-10-30 16:47] VITALS: BP 132/74; PULSE 89
--- NOTE | 2020-10-30 17:00 | EDM.PDOC ---
ED HPI GENERAL MEDICAL PROBLEM - General Chief Complaint: Lower Extremity Injury/Pain Stated Complaint: LEFT FOOT INJURY Time Seen by Provider: 10/30/20 16:45 Source of Information: Reports: Patient, RN Notes Reviewed History Limitations: Reports: No Limitations - History of Present Illness INITIAL COMMENTS - FREE TEXT/NARRATIVE: Patient is a 40-year-old female who presents to the ER for left foot injury. Patient was at [facility] in [facility] [facility], walking on a narrow path when she did not see a chunk of rock in the path as she was looking at the scenery ended up stumbling over the rock, and then inverting her left foot. She notes she has had pain in this area since then has not been able to put much weight on this at all without a lot of pain. Patient notes she has incredibly weak ankles and she is very prone to hurting her feet/ankles. She points to her left lateral midfoot as a source of the pain, and pain that shoots up the leg. Denying any numbness or tingling distal to the injury. Patient is able to wiggle her toes without difficulty. States that dorsiflexion, inversion and eversion of her foot seems to hurt the worst. Plantarflexion seems to be just fine. Patient denies any other sick-like symptoms, fever/chills, cough/shortness of breath, nausea/vomiting/diarrhea. There is some bruising/swelling to the left lateral midfoot. Left Ankle Pain Score (Numeric/FACES): 7 - Related Data Allergies Allergy/AdvReac Type Severity Reaction Status Date / Time Cephalosporins Allergy Severe Cannot Verified 10/30/20 16:47 Remember Penicillins Allergy Severe Hives Verified 10/30/20 16:47 Sulfa (Sulfonamide Allergy Severe Hives Verified 10/30/20 16:47 Antibiotics) latex AdvReac Severe Decreased Verified 10/30/20 16:47 Urine Output metoclopramide HCl AdvReac Severe Diarrhea Verified 10/30/20 16:47 [From Reglan] sertraline HCl [From Zoloft] AdvReac Severe Dizziness Verified 10/30/20 16:47 Home Meds: Home Meds Acetaminophen/oxyCODONE [Percocet 325-5 MG] 1 - 2 tab PO Q6H PRN #20 tab 1 [Rx] Non-Formulary Medication [NF Drug] 1 dose PO DAILY 10/07/20 [History] Ondansetron [Zofran ODT] 1 tab PO Q8H PRN #10 tab.dis 10/07/20 [Rx] Tamsulosin [Flomax] 1 cap PO QPM PRN #10 cap.er 10/07/20 [Rx] Hydrocodone/Acetaminophen [Hydrocodone-Acetamin 5-325 mg] 1 - 2 each PO Q6H PRN #15 tablet 10/08/20 [Rx] Colestipol [Colestid] 1,000 gm PO DAILY #30 bottle 10/21/20 [Rx] Ketorolac [Toradol] 10 mg PO Q6H PRN #8 tab 10/21/20 [Rx] Ketorolac [Toradol] 10 mg PO TID PRN #15 tab 10/30/20 [Rx] Past Medical History HEENT History: Reports: Allergic Rhinitis, Impaired Vision, Sinusitis Other HEENT History: Wears glasses, nasal ulcer Cardiovascular History: Reports: Hypertension Other Cardiovascular History: tachycardia, edema Respiratory History: Reports: Other (See Below) Other Respiratory History: Severe snoring [negative sleep study] Gastrointestinal History: Reports: Chronic Constipation, Chronic Diarrhea, Gastritis, GERD, Hemorrhoids, Irritable Bowel Syndrome, PUD Other Gastrointestinal History: nausea and vomitting, diarrhea, peptic ulcer, transaminitis - drug-induced elev. LFT, rectal bleeding, anal fissure, bloating and cramps, gastroenteritis Genitourinary History: Reports: Renal Calculus, UTI, Recurrent, Other (See Below) Other Genitourinary History: bladder spasms NATURALIST History: Reports: Endometriosis Other NATURALIST History: menorrhagia, pelvic pain, 3 surgeries for endometriosis, breast swelling, candidasis of breast, dysmenorrhea, gential herpes, irregular menses, breast hematoma Musculoskeletal History: Reports: Fracture, Fibromyalgia, Neck Pain, Chronic, Other (See Below) Other Musculoskeletal History: hx of fracture to foot, chronic pain, polyarthralgia, carpal tunnel syndrome, arthropathy, chronic neck and shoulder pain, spine pain Neurological History: Reports: Headaches, Chronic, Migraines Other Neuro History: fibromyalgia, chronic pain -neck/back/lower legs, migraines with aura, memory impairments Psychiatric History: Reports: Anxiety, Depression Other Psychiatric History: fatigue, heterozygous MTHFR mutation [id number], chronic pain Endocrine/Metabolic History: Reports: Obesity/BMI 30+, Vitamin D Deficiency Other Endocrine/Metabolic History: cushingoid facies Hematologic History: Reports: B12 Deficiency, Iron Deficiency Other Hematologic History: hypokalemia, iron deficiency, vitamin b 12 deficiency, vitamin D deficiency, Heterozygous MTHFR mutation [id number] Dermatologic History: Reports: Seborrheic Dermatitis Other Dermatologic History: seborrheic keratosis, nevus, rash, seborrheic dermatitis, hx of candidiasis, hand dermatitis, neoplasm of skin, skin ulcer, surgical wound infection, viral warts - Infectious Disease History Infectious Disease History: Reports: Chicken Pox - Past Surgical History HEENT Surgical History: Reports: Naso-Sinus Surgery Other HEENT Surgeries/Procedures: Deviated septum repair, sinus surgery GI Surgical History: Reports: Cholecystectomy, Colonoscopy, EGD Other GI Surgeries/Procedures: anal fistulotomy with botox injection Female Surgical History: Reports: Breast Reduction, Hysterectomy, Kidney stone extraction, Lithotripsy/ESWL Social & Family History - Family History Family Medical History: No Pertinent Family History - Tobacco Use Tobacco Use Status *Q: Never Tobacco User - Caffeine Use Caffeine Use: Reports: Soda Other Caffeine Use: rarely on the soda - Recreational Drug Use Recreational Drug Use: Yes Recreational Drug Type: Reports: Marijuana/Hashish - Living Situation & Occupation Living situation: Reports: , with Spouse Occupation: Unemployed Review of Systems - Review of Systems Review Of Systems: Comprehensive ROS is negative, except as noted in HPI. ED EXAM, GENERAL - Physical Exam Exam: See Below Exam Limited By: No Limitations General Appearance: Alert, WD/WN, No Apparent Distress Respiratory/Chest: No Respiratory Distress, Lungs Clear, Normal Breath Sounds, No Accessory Muscle Use, Chest Non-Tender Cardiovascular: Normal Peripheral Pulses, Regular Rate, Rhythm, No Edema Extremities: Normal Inspection, Normal Capillary Refill Neurological: Alert, Oriented, Normal Cognition, No Motor/Sensory Deficits Psychiatric: Normal Affect, Normal Mood Skin Exam: Warm, Dry, Intact, No Rash, Ecchymosis (to left lateral midfoot area.) Course - Vital Signs Last Recorded V/S: Last Vital Signs Temp 97.6 F 10/30/20 16:43 Pulse 89 10/30/20 16:43 Resp 14 10/30/20 16:43 BP 132/74 10/30/20 16:43 Pulse Ox 96 10/30/20 16:43 - Orders/Labs/Meds Orders: Active Orders 24 hr Category Date Time Status SAURABH Bandage [Elastic Wrap] [OM.PC] Routine Oth 10/30/20 18:23 Ordered Meds: Medications Discontinued Medications Generic Name Dose Route Start Last Admin Trade Name Freq PRN Reason Stop Dose Admin Ketorolac Tromethamine 30 mg 10/30/20 18:20 10/30/20 18:25 Ketorolac 30 Mg/Ml Sdv IM 10/30/20 18:21 30 mg ONETIME ONE Administration - Re-Assessments/Exams Free Text/Narrative Re-Assessment/Exam: 10/30/20 17:01 Patient presents to the ED for her left foot injury. Will get x-rays of this area for evaluation. 10/30/20 18:12 Foot x-rays demonstrate no obvious sign of fracture or other bony abnormalities, this was reviewed by myself and Dr. Beavers. We will go ahead and get the patient's foot Saurabh wrapped, we will provide crutches if she would like some otherwise she can ambulate as tolerated. 10/30/20 20:44 Official x-ray report has completed, there are 2 small bony densities noted of the anterior and dorsal talus, which were seen on the oblique view compatible with minimal cortical avulsion fractures. This should not change the management of the patient's care much as she is already left the ER. I did encourage her to get seen by her provider if her pain does not seem to be much better in a roughly week's time. Departure - Departure Time of Disposition: 18:24 Disposition: Home, Self-Care 01 Condition: Good Clinical Impression: Moderate left ankle sprain Qualifiers: Encounter type: initial encounter Qualified Code(s): S93.402A - Sprain of unspecified ligament of left ankle, initial encounter - Discharge Information *PRESCRIPTION DRUG MONITORING PROGRAM REVIEWED*: No *COPY OF PRESCRIPTION DRUG MONITORING REPORT IN PATIENT JOSE: No Prescriptions: Ketorolac [Toradol] 10 mg PO TID PRN #15 tab PRN Reason: Pain Instructions: Ankle Sprain, [id number] Referrals: Diane Hester NP [Primary Care Provider] - Forms: ED Department Discharge Additional Instructions: You have been evaluated in the ED for your left foot/ankle injury. Your x-ray demonstrated no acute fracture or other bony abnormality on your left foot x-rays. Please use ice as tolerated to the affected area. Please try to elevate the affected area to relieve swelling. Your foot has been Saurabh wrapped, to help relieve some pain and swelling. You may use this as tolerated to help provide further support. If the Saurabh wrap does not provide enough lateral support, you may go to [facility] and pick a stirrup splint up, to use, this will have more ri gid sides for support on the sides of your ankle. You were given a prescription for Toradol tablets through the [employer] [facility] machine, please use sparingly, and only if you need to. You may supplement with Tylenol 500 mg every 6 hours as needed for ongoing pain management. Please return to ED if your symptoms should change or worsen. Sepsis Event Note (ED) - Evaluation Sepsis Screening Result: No Definite Risk - Focused Exam Vital Signs: Vital Signs Temp Pulse Resp BP Pulse Ox 10/30/20 16:43 97.6 F 89 14 132/74 96 - My Orders Last 24 Hours: My Active Orders 10/30/20 18:23 SAURABH Bandage [Elastic Wrap] [OM.PC] Routine - Assessment/Plan Last 24 Hours: My Active Orders 10/30/20 18:23 SAURABH Bandage [Elastic Wrap] [OM.PC] Routine
[2020-10-30] MEDS ORDERED: Ketorolac 30 MG/ML SDV IM ONE (18:20)
--- NOTE | 2020-10-30 19:01 | CR ---
Left foot: 4 views of the left foot were obtained. Comparison: No previous foot study is available. Minimal spur is noted off the posterior calcaneus at the attachment of the Achilles tendon. Minimal plantar spur is noted. Two small bony densities are noted off the anterior and dorsal talus which are seen on the oblique view. These are felt compatible with minimal cortical avulsion fractures. Adjacent soft tissue swelling is noted. No additional fracture or other bony abnormality is appreciated. Impression: 1. Two small cortical avulsion fractures off the anterior and dorsal talus. Adjacent soft tissue swelling is noted. 2. Other findings as noted above which are nonacute. Diagnostic code #3
== END 2020-10-30 18:30 | disposition home or self-care (01) ==
LOC: JD.ED 16:29
DX: S93.402A Sprain of unspecified ligament of left ankle, initial encounter (principal); I10 Essential (primary) hypertension; E66.9 Obesity, unspecified; Z68.30 Body mass index [BMI] 30.0-30.9, adult; Z88.0 Allergy status to penicillin; Z88.2 Allergy status to sulfonamides; Z91.040 Latex allergy status; Z88.8 Allergy status to other drugs, medicaments and biological substances; X50.1XXA Overexertion from prolonged static or awkward postures, initial encounter
CPT/HCPCS: 73630; 96372; 99283; J1885

== ENCOUNTER 2020-11-08 19:37 | Emergency (ER) | payer MEDICAID, OTHER ==
[2020-11-08] MEDS ORDERED: Ondansetron 4 MG/2 ML SDV IVPUSH ONE (20:05)
[2020-11-08] MEDS ORDERED: HYDROmorphone 1 MG/ML Syringe IVPUSH STA (20:05)
--- NOTE | 2020-11-08 20:13 | EDM.PDOC ---
ED HPI GENERAL MEDICAL PROBLEM - General Chief Complaint: Gastrointestinal Problem Stated Complaint: BODY PAIN Time Seen by Provider: 11/08/20 19:48 Source of Information: Reports: Patient History Limitations: Reports: Uncooperative (Patient refused to answer questions, stating that it made her nausea worse) - History of Present Illness INITIAL COMMENTS - FREE TEXT/NARRATIVE: The triage note reads "Pt c/o abdominal pain rated 10/10, nausea, and vomiting. Pt recently started taking colestipol, clonazepam, topiramate, prazosin, and venlafaxine and states she thinks the topiramate or venlafxine has caused her to vomit throughout the day today. Pt states she last took zofran around 2AM this morning. Vomited x 2 on arrival to ER. Pt is crying and restless during triage assessment." When I asked the patient what brings her to the ED, she indicated that she had developed nausea and vomiting about an hour ago, but then stated that she could not answer any more questions, because answering questions increased her nausea. The patient's initial BP was found to be elevated at 160/101, otherwise, she is hemodynamically stable, afebrile, saturating 95% on room air. She is breathing heavily, as if sobbing, however, there are no tears. Due to the patient's inability to answer questions, a recent review of systems is not obtainable. Her PMHx/PSHx/SocHx is obtained from prior medical records. The patient's PCP is Diane Hester NP. Her Psychiatrist is Dr. Merna Ferro. Abdomen Pain Score (Numeric/FACES): 10 - Related Data Allergies Allergy/AdvReac Type Severity Reaction Status Date / Time Penicillins Allergy Intermediate Hives Verified 11/08/20 19:46 Sulfa (Sulfonamide Allergy Mild Hives Verified 11/08/20 19:46 Antibiotics) Cephalosporins Allergy Unknown Cannot Verified 11/08/20 19:46 Remember latex AdvReac Intermediate Decreased Verified 11/08/20 19:46 Urine Output metoclopramide HCl AdvReac Mild Diarrhea Verified 11/08/20 19:46 [From Reglan] sertraline HCl [From Zoloft] AdvReac Mild Dizziness Verified 11/08/20 19:46 Home Meds: Home Meds Non-Formulary Medication [NF Drug] 1 dose PO DAILY 10/07/20 [History] Ondansetron [Zofran ODT] 1 tab PO Q8H PRN #10 tab.dis 10/07/20 [Rx] Tamsulosin [Flomax] 1 cap PO QPM PRN #10 cap.er 10/07/20 [Rx] Colestipol [Colestid] 3 gram PO BID 11/08/20 [History] Prazosin HCl [Prazosin] 2 mg PO DAILY 11/08/20 [History] Topiramate 25 mg PO DAILY 11/08/20 [History] Venlafaxine HCl [Venlafaxine ER] 37.5 mg PO DAILY 11/08/20 [History] clonazePAM [Clonazepam] 0.5 mg PO BID PRN 11/08/20 [History] Past Medical History HEENT History: Reports: Allergic Rhinitis, Impaired Vision, Sinusitis Other HEENT History: Wears glasses, nasal ulcer Cardiovascular History: Reports: Hypertension Other Cardiovascular History: tachycardia, edema Respiratory History: Reports: Other (See Below) Other Respiratory History: Severe snoring [negative sleep study] Gastrointestinal History: Reports: Chronic Constipation, Chronic Diarrhea, Gastritis, GERD, Hemorrhoids, Irritable Bowel Syndrome, PUD Other Gastrointestinal History: nausea and vomitting, diarrhea, peptic ulcer, transaminitis - drug-induced elev. LFT, rectal bleeding, anal fissure, bloating and cramps, gastroenteritis Genitourinary History: Reports: Renal Calculus, UTI, Recurrent, Other (See Below) Other Genitourinary History: bladder spasms [employer] History: Reports: Endometriosis Other [employer] History: menorrhagia, pelvic pain, 3 surgeries for endometriosis, breast swelling, candidasis of breast, dysmenorrhea, gential herpes, irregular menses, breast hematoma Musculoskeletal History: Reports: Fracture, Fibromyalgia, Neck Pain, Chronic, Other (See Below) Other Musculoskeletal History: hx of fracture to foot, chronic pain, polyarthralgia, carpal tunnel syndrome, arthropathy, chronic neck and shoulder pain, spine pain Neurological History: Reports: Headaches, Chronic, Migraines Other Neuro History: fibromyalgia, migraines with aura, memory impairments Psychiatric History: Reports: Anxiety, Depression Other Psychiatric History: 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 Endocrine/Metabolic History: Reports: Obesity/BMI 30+, Vitamin D Deficiency Other Endocrine/Metabolic History: cushingoid facies Hematologic History: Reports: B12 Deficiency, Iron Deficiency Other Hematologic History: hypokalemia, iron deficiency, vitamin b 12 deficiency, vitamin D deficiency, Heterozygous MTHFR mutation [id number] Immunologic History: Reports: None Oncologic (Cancer) History: Reports: None Dermatologic History: Reports: Seborrheic Dermatitis Other Dermatologic History: seborrheic keratosis, nevus, rash, seborrheic dermatitis, hx of candidiasis, hand dermatitis, neoplasm of skin, skin ulcer, surgical wound infection, viral warts - Infectious Disease History Infectious Disease History: Reports: Chicken Pox - Past Surgical History HEENT Surgical History: Reports: Naso-Sinus Surgery Other HEENT Surgeries/Procedures: Deviated septum repair, sinus surgery GI Surgical History: Reports: Cholecystectomy, Colonoscopy, EGD Other GI Surgeries/Procedures: anal fistulotomy with botox injection Female Surgical History: Reports: Breast Reduction, Hysterectomy, Kidney stone extraction, Lithotripsy/ESWL Dermatological Surgical History: Reports: None Social & Family History - Family History Family Medical History: No Pertinent Family History - Tobacco Use Tobacco Use Status *Q: Never Tobacco User Second Hand Smoke Exposure: No - Caffeine Use Caffeine Use: Reports: Soda Other Caffeine Use: rarely on the soda - Alcohol Use Alcohol Use History: No - Recreational Drug Use Recreational Drug Use: Yes Drug Use in Last 12 Months: Yes Recreational Drug Type: Reports: Marijuana/Hashish Recreational Drug Use Frequency: Daily Recreational Drug Last Use: t - Living Situation & Occupation Living situation: Reports: , with Spouse Occupation: Unemployed ED ROS GENERAL - Review of Systems Review Of Systems: Unable To Obtain Reason Not Obtained: Patient unwilling to answer questions ED EXAM, GI/ABD - Physical Exam Exam: See Below Exam Limited By: Uncooperative General Appearance: Alert, WD/WN, Other (tearless crying) Eyes: Bilateral: Normal Appearance, EOMI Ears: Normal External Exam, Hearing Grossly Normal Nose: Normal Inspection Throat/Mouth: Normal Inspection, Normal Lips, Normal Voice, No Airway Compromise Head: Atraumatic, Normocephalic Neck: Normal Inspection, Full Range of Motion Respiratory/Chest: No Respiratory Distress, Lungs Clear, Normal Breath Sounds, No Accessory Muscle Use Cardiovascular: Normal Peripheral Pulses, Regular Rate, Rhythm, No Edema, No Gallop, No JVD, No Murmur, No Rub GI/Abdominal Exam: Normal Bowel Sounds, Soft, No Organomegaly, No Distention, No Abnormal Bruit, No Mass, Tender (generalized?) Back Exam: Normal Inspection, Full Range of Motion, NT Extremities: Normal Inspection, Normal Range of Motion, No Pedal Edema, Normal Capillary Refill Neurological: Alert, No Motor/Sensory Deficits Psychiatric: Other (tearless crying) Skin Exam: Warm, Dry, Intact, Normal Color, No Rash Course - Vital Signs Last Recorded V/S: Last Vital Signs Temp 36.3 C 11/08/20 19:40 Pulse 95 11/08/20 19:40 Resp 18 11/08/20 19:40 BP 160/101 H 11/08/20 19:40 Pulse Ox 95 11/08/20 19:40 - Orders/Labs/Meds Orders: Active Orders 24 hr Category Date Time Status Abdomen Pelvis w Cont [CT] Stat Exams 11/08/20 20:06 Taken Sodium Chloride 0.9% [Normal Saline] 1,000 ml Med 11/08/20 20:15 Active IV ASDIRECTED Sodium Chloride 0.9% [Saline Flush] Med 11/08/20 20:45 Active 10 ml FLUSH ASDIRECTED Medication Orders Sodium Chloride (Normal Saline) 1,000 mls @ 150 mls/hr IV ASDIRECTED [place] Last Admin: 11/08/20 20:19 Dose: 150 mls/hr Documented by: TALIA Sodium Chloride (Sodium Chloride 0.9% 10 Ml Syringe) 10 ml FLUSH ASDIRECTED [place] Labs: Laboratory Tests 11/08/20 11/08/20 11/08/20 Range/Units 20:06 20:08 20:08 WBC 14.85 H (3.98-10.04) K/mm3 RBC 4.76 (3.98-5.22) M/mm3 Hgb 14.4 (11.2-15.7) gm/dl Hct 43.7 (34.1-44.9) % MCV 91.8 (79.4-94.8) fl MCH 30.3 (25.6-32.2) pg MCHC 33.0 (32.2-35.5) g/dl RDW Std Deviation 41.3 (36.4-46.3) fL Plt Count 312 (182-369) K/mm3 MPV 11.5 (9.4-12.3) fl Neutrophils % (Manual) 82 H (40-60) % Band Neutrophils % 0 (0-10) % Lymphocytes % (Manual) 13 L (20-40) % Atypical Lymphs % 0 % Monocytes % (Manual) 5 (2-10) % Eosinophils % (Manual) 0 L (0.7-5.8) % Basophils % (Manual) 0 L (0.1-1.2) Platelet Estimate Adequate Plt Morphology Comment Normal RBC Morph Comment Normal Sodium 143 (136-145) mEq/L Potassium 3.4 L (3.5-5.1) mEq/L Chloride 106 (98-107) mEq/L Carbon Dioxide 20 L (21-32) mEq/L Anion Gap 20.4 H (5-15) BUN 16 (7-18) mg/dL Creatinine 1.0 (0.55-1.02) mg/dL Est Cr Clr Drug Dosing 55.87 mL/min Estimated GFR (MDRD) > 60 (>60) mL/min BUN/Creatinine Ratio 16.0 (14-18) Glucose 154 H (70-99) mg/dL Calcium 9.3 (8.5-10.1) mg/dL Total Bilirubin 0.8 (0.2-1.0) mg/dL AST 14 L (15-37) U/L ALT 35 (14-59) U/L Alkaline Phosphatase 44 L (46-116) U/L Total Protein 8.2 (6.4-8.2) g/dl Albumin 4.5 (3.4-5.0) g/dl Globulin 3.7 gm/dL Albumin/Globulin Ratio 1.2 (1-2) Lipase 518 H (73-393) U/L Urine Color Yellow (Yellow) Urine Appearance Clear (Clear) Urine pH 8.0 (5.0-8.0) Ur Specific [place] 1.020 (1.005-1.030) Urine Protein Trace H (Negative) Urine Glucose (UA) Negative (Negative) Urine Ketones 3+ H (Negative) Urine Occult Blood 3+ H (Negative) Urine Nitrite Negative (Negative) Urine Bilirubin Negative (Negative) Urine Urobilinogen 0.2 (0.2-1.0) Ur Leukocyte Esterase Negative (Negative) Urine RBC >100 H (0-5) /hpf Urine WBC 0-5 (0-5) /hpf Ur Squamous Epith Cells 5-10 H (0-5) /hpf Urine Bacteria Few (FEW) /hpf Urine Mucus Few (FEW) /hpf Meds: Medications Generic Name Dose Route Start Last Admin Trade Name Sandi PRN Reason Stop Dose Admin Sodium Chloride 1,000 mls @ 150 mls/hr 11/08/20 20:15 11/08/20 20:19 Normal Saline IV 150 mls/hr ASDIRECTED [place] Administration Sodium Chloride 10 ml 11/08/20 20:45 Sodium Chloride 0.9% 10 Ml Syringe FLUSH ASDIRECTED [place] Discontinued Medications Generic Name Dose Route Start Last Admin Trade Name Sandi PRN Reason Stop Dose Admin Hydromorphone HCl 0.5 mg 11/08/20 20:05 11/08/20 20:19 Hydromorphone 1 Mg/Ml Syringe IVPUSH 11/08/20 20:06 0.5 mg ONETIME STA Administration Hydromorphone HCl 0.5 mg 11/08/20 23:52 11/08/20 23:57 Hydromorphone 0.5 Mg/0.5 Ml Syringe IVPUSH 11/08/20 23:53 0.5 mg ONETIME ONE Administration Promethazine HCl 12.5 mg/ 50.5 mls @ 100 mls/hr 11/09/20 00:40 11/09/20 00:49 Sodium Chloride IV 11/09/20 01:10 100 mls/hr ONETIME ONE Administration Iopamidol 100 ml 11/08/20 20:44 Iopamidol 612 Mg/Ml 100 Ml Bottle IVPUSH 11/08/20 20:45 ONETIME ONE Metoclopramide HCl 10 mg 11/08/20 21:06 11/08/20 21:10 Metoclopramide 10 Mg/2 Ml Sdv IVPUSH 11/08/20 21:07 10 mg ONETIME ONE Administration Ondansetron HCl 4 mg 11/08/20 20:05 11/08/20 20:19 Ondansetron 4 Mg/2 Ml Sdv IVPUSH 11/08/20 20:06 4 mg ONETIME ONE Administration - Re-Assessments/Exams Free Text/Narrative Re-Assessment/Exam: 11/08/20 20:08 As above, the patient appears to have developed abdominal pain, nausea, and vomiting around 19:00 this evening, however, I was unable to obtain any other information beyond that, as the patient refused to answer questions, stating that talking made her nausea worse. She is overly dramatic to an extreme degree, which is unfortunate, because without a meaningful history, I have no choice but to order broad testing to see if anything comes back abnormal. As such, I have ordered several blood tests, a urinalysis, and a CT of the abdomen and pelvis with oral and IV contrast. In the meantime, the patient will be given some IV Dilaudid, IV Zofran, and IV fluid. 11/08/20 22:41 The patient's CBC is remarkable for leukocytosis of 14.85, but with 0% bandemia, and the remainder of her CBC being unremarkable. Her CMP is remarkable for slight hypokalemia 3.4, and anion gap mildly elevated 20.4, but with a bicarbonate normal at 20, and mild hyperglycemia of 154, with the remainder of her CMP being unremarkable. Her lipase level is moderately elevated at 518. Her urinalysis is remarkable for 3+ occult blood with >100 RBCs, leukocyte esterase negative with 0-5 WBCs, nitrate negative with few bacteria, and 5-10 squamous epithelial cells. 11/08/20 23:38 CT of the abdomen and pelvis with oral and IV contrast is read by Gris as " Moderate right hydronephrosis and hydroureter secondary to an obstructing 7 x 3 mm calculus in the mid to distal ureter, at the level of the pelvic inlet." Of note, the body of the CT report reads Pancreas: Unremarkable. No ductal dilation. 11/09/20 00:39 Test results discussed with the patient and her . After 2 doses of IV Dilaudid, the patient is now much more comfortable, and somewhat delirious. She is requesting additional antinausea medication. I will order promethazine 12.5 mg IVP. Given the size of the stone, I recommended transfer to [place] for treatment by a Urologist. She prefers [facility]. 11/09/20 01:57 Case discussed with Shayne at [facility] at 01:30. Case then discussed with Dr. Edmonds, Urologist at [facility], at 01:41. He stated that at this time, he he would be limited to placing a stent, but would not be able to lithotripsy or extract the stone. He recommended that the patient be admitted to the hospitalist, with he on consult. Case then discussed with Dr. Taylor, Hospitalist at [facility], at 01:45. She queried whether or not the patient's elevated lipase could be due to the patient drinking alcohol. She accepted the patient for transfer to their facility. I then spoke to the patient and her . The patient reports that she never drinks alcohol. 11/09/20 02:[address] images were pushed at 02:08. Departure - Departure Time of Disposition: 01:59 Disposition: DC/Tfer to Acute Hospital 02 Condition: Good Clinical Impression: Ureterolithiasis, Elevated lipase - Discharge Information *PRESCRIPTION DRUG MONITORING PROGRAM REVIEWED*: No *COPY OF PRESCRIPTION DRUG MONITORING REPORT IN PATIENT JOSE: No Referrals: Diane Hester NP [Primary Care Provider] - Free,Merna Street MD [Ordering Only Provider] - Forms: ED Department Discharge Sepsis Event Note (ED) - Evaluation Sepsis Screening Result: No Definite Risk - Focused Exam Vital Signs: Vital Signs Temp Pulse Resp BP Pulse Ox 11/08/20 19:40 36.3 C 95 18 160/101 H 95 - My Orders Last 24 Hours: My Active Orders 11/08/20 20:06 Abdomen Pelvis w Cont [CT] Stat 11/08/20 20:15 Sodium Chloride 0.9% [Normal Saline] 1,000 ml IV ASDIRECTED 11/08/20 20:45 Sodium Chloride 0.9% [Saline Flush] 10 ml FLUSH ASDIRECTED - Assessment/Plan Last 24 Hours: My Active Orders 11/08/20 20:06 Abdomen Pelvis w Cont [CT] Stat 11/08/20 20:15 Sodium Chloride 0.9% [Normal Saline] 1,000 ml IV ASDIRECTED 11/08/20 20:45 Sodium Chloride 0.9% [Saline Flush] 10 ml FLUSH ASDIRECTED
[2020-11-08] MEDS ORDERED: Sodium Chloride 0.9% 1,000 ML IV SCH (20:15)
[2020-11-08] MEDS ORDERED: Iopamidol 612 MG/ML 100 ML Bottle IVPUSH ONE (20:44)
[2020-11-08] MEDS ORDERED: Sodium Chloride 0.9% 10 ML Syringe FLUSH SCH (20:45)
[2020-11-08] MEDS ORDERED: Metoclopramide 10 MG/2 ML SDV IVPUSH ONE (21:06)
[2020-11-08] MEDS ORDERED: HYDROmorphone 0.5 MG/0.5 ML Syringe IVPUSH ONE (23:52)
[2020-11-09] MEDS ORDERED: Promethazine 12.5 MG in Sodium Chloride 0.9% 50 ML IV ONE (00:40)
[2020-11-09 02:47] VITALS: BP 153/94; PULSE 78
--- NOTE | 2020-11-09 08:39 | CT ---
CT abdomen and pelvis Technique: Multiple axial sections were obtained from above the dome of the diaphragm inferiorly through the pubic symphysis. Intravenous contrast was utilized. Reconstructed coronal and sagittal images were obtained. Comparison: Prior CT abdomen and pelvis exam of 10/07/20. Findings: Right kidney shows mild hydronephrosis and dilatation of the proximal ureter. These findings are caused by an obstructing ureteral stone within the mid right ureter measuring approximately 6 mm. This stone occurs approximately 9 cm from the UVJ. Kidneys show small low-density findings most likely representing minimal cysts. No other renal calcifications are definitely appreciated. Visualized lung bases show nothing acute. Minimal fat-containing umbilical hernia is noted. Liver contains no focal parenchymal abnormality. Surgical clips are seen from prior cholecystectomy. Adrenal glands show no nodule. Spleen size is normal. Pancreas shows no abnormality. Abdominal aorta shows no aneurysm. No retroperitoneal adenopathy or mesenteric abnormalities are seen. Appendix is seen which is normal in size. No pelvic mass or adenopathy is identified. Bone window settings were reviewed which show nothing acute for the patient's age. Impression: 1. Obstructing stone measuring approximately 6 mm located within the mid to distal ureter occurring approximately 9 cm from the UVJ. 2. Small cysts within the kidneys. 3. No other acute abnormality is appreciated on CT study of the abdomen and pelvis. Diagnostic code #3 I agree with preliminary report from [facility], finalized on 11/08/20, 11:40 PM CDT, code 1
== END 2020-11-09 02:35 ==
LOC: JD.ED 19:37
DX: N13.2 Hydronephrosis with renal and ureteral calculous obstruction (principal); R74.8 Abnormal levels of other serum enzymes; I10 Essential (primary) hypertension; E66.9 Obesity, unspecified; Z68.31 Body mass index [BMI] 31.0-31.9, adult; Z88.0 Allergy status to penicillin; Z88.1 Allergy status to other antibiotic agents; Z91.040 Latex allergy status; Z88.8 Allergy status to other drugs, medicaments and biological substances
CPT/HCPCS: 36415; 74177; 80053; 81001; 83690; 85007; 85027; 96365; 96375; 96376; 99285; J1170; J2405; J2550; J2765; J7030

== ENCOUNTER 2020-11-22 23:03 | Emergency (ER) | payer MEDICAID, OTHER ==
[2020-11-22 23:24] VITALS: BP 157/102; PULSE 95
[2020-11-23] MEDS ORDERED: Ondansetron 4 MG/2 ML SDV IVPUSH ONE ×2 (00:28→02:03)
[2020-11-23] MEDS ORDERED: Sodium Chloride 0.9% 1,000 ML IV ONE (00:28)
--- NOTE | 2020-11-23 00:34 | EDM.PDOC ---
ED HPI GENERAL MEDICAL PROBLEM - General Chief Complaint: Flank Pain Stated Complaint: KIDNEY STONE Time Seen by Provider: 11/22/20 23:59 Source of Information: Reports: Patient History Limitations: Reports: No Limitations - History of Present Illness INITIAL COMMENTS - FREE TEXT/NARRATIVE: Medical records indicate that the patient was seen by me in this ED on 11/08/2020 with a complaint of abdominal pain, nausea, and vomiting. Her examination was remarkable for generalized abdominal tenderness. Work-up included a CBC, CMP, lipase level, urinalysis, and CT of the abdomen and pelvis with oral and IV contrast. Her lipase was found to be moderately elevated at 518, her urinalysis remarkable for 3+ occult blood with >100 RBCs, and the CT found a moderate right hydronephrosis and hydroureter secondary to an obstructing 7 x 3 mm calculus in the mid to distal ureter, at the level of the pelvic inlet. Given the size of the stone, her case was discussed with a urologist at [facility], who remarked that his treatment at that time would be limited to placing a stent, but that he was unable to perform lithotripsy or extract the stone. The patient agreed to be transferred to [facility]. The patient tells me at this time that a ureteral stent was placed on 11/10/2020, but that definitive surgery for removal of the stone has been delayed several times, and is currently scheduled for this 11/25/2020. She states that when she was discharged from [facility], she was prescribed ketorolac 10 mg, 1 tab po TID, Barnett 5/325 1 tab po Q6 hrs, and Zof ran 4 mg ODT. She states that she has been taking 1 tablet of Barnett every 8 hours, not every 6. She states that she has been taking the ketorolac and Zofran as prescribed, but that she ran out at 20:00 last night. The patient states that she was seen at the [facility] ED yesterday, where work-up included blood work, a urinalysis, and an x-ray of her abdomen, which indicated that the stone had not moved. She was given IV fluid, pain medication, and antinausea medication, although she states that she was not given any prescriptions home. It is not clear why not. The patient is now here requesting that we get her pain and nausea under control, then refill her ketorolac and Zofran. She still has many Barnett tablets, and is not requesting a refill of those. Here in the ED tonight, the patient's initial BP is initially mildly elevated at 157/102, otherwise, she is afebrile, saturating 97% on room air. She appears to be anxious, but in no acute distress. Other than continued flank pain, nausea, and vomiting, the patient reports having gross hematuria. She denies having a recent fever, chills, sore throat, ear pain, nasal or sinus congestion, cough, dyspnea, chest pain, palpitations, constipation, diarrhea, abdominal pain, dysuria, recent weight gain or weight loss, recent bloody bowel movements or black bowel movements, recent joint aches, headaches, or rashes. The patient's PCP is Diane Hester NP. Her Psychiatrist is Dr. Merna Ferro. She does not recall the name of her Urologist, however, she was initially referred to Dr. Isauro Edmonds. Flank Pain Score (Numeric/FACES): 9 - Related Data Allergies Allergy/AdvReac Type Severity Reaction Status Date / Time Penicillins Allergy Intermediate Hives Verified 11/22/20 23:16 Sulfa (Sulfonamide Allergy Mild Hives Verified 11/22/20 23:16 Antibiotics) Cephalosporins Allergy Unknown Cannot Verified 11/22/20 23:16 Remember latex AdvReac Intermediate Decreased Verified 11/22/20 23:16 Urine Output metoclopramide HCl AdvReac Mild Diarrhea Verified 11/22/20 23:16 [From Reglan] sertraline HCl [From Zoloft] AdvReac Mild Dizziness Verified 11/22/20 23:16 Home Meds: Home Meds Non-Formulary Medication [NF Drug] 1 dose PO DAILY 10/07/20 [History] Ondansetron [Zofran ODT] 1 tab PO Q8H PRN #10 tab.dis 10/07/20 [Rx] Tamsulosin [Flomax] 1 cap PO QPM PRN #10 cap.er 10/07/20 [Rx] Colestipol [Colestid] 3 gram PO BID 11/08/20 [History] Prazosin HCl [Prazosin] 2 mg PO DAILY 11/08/20 [History] Topiramate 25 mg PO DAILY 11/08/20 [History] Venlafaxine HCl [Venlafaxine ER] 37.5 mg PO DAILY 11/08/20 [History] clonazePAM [Clonazepam] 0.5 mg PO BID PRN 11/08/20 [History] Ketorolac [Toradol] 1 tab PO TID #30 tab 11/23/20 [Rx] Ondansetron [Zofran ODT] 1 tab PO Q8H PRN #30 tab.dis 11/23/20 [Rx] Tamsulosin [Flomax] 1 cap PO QAM PRN #10 cap.er 11/23/20 [Rx] Past Medical History HEENT History: Reports: Allergic Rhinitis, Impaired Vision (wears glasses) Cardiovascular History: Reports: Hypertension Gastrointestinal History: Reports: Gastritis, GERD, Hemorrhoids, Irritable Bowel Syndrome, PUD Other Gastrointestinal History: itis Genitourinary History: Reports: Renal Calculus, Urinary Incontinence (spastic bladder) 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: Reports: Endometriosis Musculoskeletal History: Reports: Fracture Neurological History: Reports: Migraines Psychiatric History: Reports: Anxiety, Depression, Other (See Below) (Fibromyalgia) Endocrine/Metabolic History: Reports: Obesity/BMI 30+, Vitamin D Deficiency, Other (See Below) (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) Hematologic History: Reports: B12 Deficiency, Iron Deficiency - Infectious Disease History Infectious Disease History: Reports: Chicken Pox - Past Surgical History HEENT Surgical History: Reports: Naso-Sinus Surgery (Deviated septum repair, sinus surgery) GI Surgical History: Reports: Cholecystectomy, Colonoscopy, EGD, Other (See Below) (Anal fistulotomy with botox injection) Female Surgical History: Reports: Breast Reduction, Hysterectomy, Kidney stone extraction, Lithotripsy/ESWL Social & Family History - Tobacco Use Tobacco Use Status *Q: Never Tobacco User - Caffeine Use Caffeine Use: Reports: Soda Other Caffeine Use: rarely on the soda - Alcohol Use Alcohol Use History: No - Recreational Drug Use Recreational Drug Use: Yes Drug Use in Last 12 Months: Yes Recreational Drug Type: Reports: Marijuana/Hashish (smokes daily) - Living Situation & Occupation Living situation: Reports: , with Spouse Occupation: Unemployed ED ROS GENERAL - Review of Systems Review Of Systems: Comprehensive ROS is negative, except as noted in HPI. ED EXAM, RENAL/ - Physical Exam Exam: See Below Exam Limited By: No Limitations General Appearance: Alert, WD/WN, No Apparent Distress, Anxious Eye Exam: Bilateral Eye: EOMI, Normal Inspection Ears: Normal External Exam, Hearing Grossly Normal Nose: Normal Inspection Throat/Mouth: Normal Inspection, Normal Lips, Normal Voice, No Airway Compromise Head: Atraumatic, Normocephalic Neck: Normal Inspection, Full Range of Motion Respiratory/Chest: No Respiratory Distress, Lungs Clear, Normal Breath Sounds, No Accessory Muscle Use Cardiovascular: Normal Peripheral Pulses, Regular Rate, Rhythm, No Edema, No Gallop, No JVD, No Murmur, No Rub GI/Abdominal: Normal Bowel Sounds, Soft, Non-Tender, No Organomegaly, No Distention, No Abnormal Bruit, No Mass Back Exam: Normal Inspection, Full Range of Motion, CVA Tenderness (R). No: CVA Tenderness (L) Extremities: Normal Inspection, Normal Range of Motion, Normal Capillary Refill Neurological: Alert, Oriented, Normal Cognition, No Motor/Sensory Deficits Psychiatric: Anxious Skin Exam: Warm, Dry, Intact, Normal Color, No Rash Course - Vital Signs Last Recorded V/S: Last Vital Signs Temp 36.4 C 11/22/20 23:17 Pulse 95 11/22/20 23:17 Resp 15 11/22/20 23:17 BP 157/102 H 11/22/20 23:17 Pulse Ox 97 11/22/20 23:17 - Orders/Labs/Meds Labs: Laboratory Tests 11/22/20 11/22/20 Range/Units 23:41 23:43 Urine Color Red H (Yellow) Urine Appearance Turbid H (Clear) Urine pH 6.0 (5.0-8.0) Ur Specific [place] 1.025 (1.005-1.030) Urine Protein 3+ H (Negative) Urine Glucose (UA) Negative (Negative) Urine Ketones 1+ H (Negative) Urine Occult Blood 3+ H (Negative) Urine Nitrite Positive H (Negative) Urine Bilirubin 2+ H (Negative) Urine Urobilinogen 2.0 H (0.2-1.0) Ur Leukocyte Esterase 3+ H (Negative) Urine RBC Too numerous to cnt H (0-5) /hpf Urine WBC 10-20 H (0-5) /hpf Ur Squamous Epith Cells 5-10 H (0-5) /hpf Urine Bacteria Few (FEW) /hpf Urine Mucus Few (FEW) /hpf Urine HCG, Qual Negative (NEGATIVE) Meds: Medications Discontinued Medications Generic Name Dose Route Start Last Admin Trade Name Sandi PRN Reason Stop Dose Admin Al Hydroxide/Mg Hydroxide 30 0 ml 11/23/20 03:03 11/23/20 03:06 ml/ Lidocaine HCl 15 ml PO 11/23/20 03:04 45 ml ONETIME STA Administration Famotidine 40 mg 11/23/20 03:35 11/23/20 04:02 Famotidine 20 Mg Tab PO 11/23/20 03:36 40 mg ONETIME STA Administration Hydromorphone HCl 0.5 mg 11/23/20 02:18 11/23/20 02:24 Hydromorphone 0.5 Mg/0.5 Ml Syringe IVPUSH 11/23/20 02:19 0.5 mg ONETIME ONE Administration Sodium Chloride 1,000 mls @ 999 mls/hr 11/23/20 00:28 11/23/20 00:43 Normal Saline IV 11/23/20 01:28 999 mls/hr ONETIME ONE Administration Ondansetron HCl 4 mg 11/23/20 00:28 11/23/20 00:44 Ondansetron 4 Mg/2 Ml Sdv IVPUSH 11/23/20 00:29 4 mg ONETIME ONE Administration Ondansetron HCl 4 mg 11/23/20 02:03 11/23/20 02:12 Ondansetron 4 Mg/2 Ml Sdv IVPUSH 11/23/20 02:04 4 mg ONETIME ONE Administration Tamsulosin HCl 0.4 mg 11/23/20 03:39 11/23/20 04:02 Tamsulosin 0.4 Mg Cap.Er PO 11/23/20 03:40 0.4 mg ONETIME ONE Administration - Re-Assessments/Exams Free Text/Narrative Re-Assessment/Exam: 11/23/20 00:29 As above, the patient was diagnosed with a 7 mm stone in the mid to distal right ureter on 11/08/2020. She was transferred to [facility] the table tender sludge of 11/09/2020. She tells me that because the lithotripsy machine was broken, she had a stent placed on 11/10/2020. She has been treated with Barnett, ketorolac, and Zofran, however, she has only been taking 1 tablet of Barnett every 8 hours, instead of every 6 hours, as prescribed. She was seen in the [facility] ED yesterday, where an x-ray confirmed that the stone has not moved. She was given some IV fluid, pain medication, and antinausea medication, but she tells me that she was not given any prescriptions for home. She has now run out of both her ketorolac and Zofran, and she states that the Barnett, at the dosage that she is taking it, is inadequate. A urinalysis, ordered at triage, is remarkable for red turbid appearance, 3+ occult blood with too numerous to count RBCs, 3+ leukocyte esterase with 10-20 WBCs, nitrate positive with few bacteria, and 5-10 squamous epithelial cells. A urine test is negative. We discussed the patient's medications at length. I am recommending that she take an additional Barnett at this time, and she will be given 1 L of IV fluid and 4 mg of IV Zofran here in the ED. I will then discharge her home with a prescription for ketorolac 10 mg, 1 tab po TID, and Zofran 4 mg ODT, 1 tab po Q 6 to 8 hrs prn N/V. She is then scheduled to undergo either lithotripsy or surgical extraction of the stone this 11/25/2020. 11/23/20 02:03 The patient reports that she is still feeling nauseated. I have ordered a second dose of Zofran 4 mg IVP. 11/23/20 02:19 Notified that the patient is reporting increased pain. I have ordered some IV Dilaudid. 11/23/20 03:03 The patient states that she feels substantially better, and she looks better, as well. She requested a GI cocktail to help with some gastritis that she is experiencing. 11/23/20 03:35 The patient states that she feels substantially better and now well enough to go home. I will start her on oral famotidine with the recommendation that she begin taking 1 tablet twice a day for 1 week, then decrease the dose to 1 tablet every morning. I will submit a prescription for 10 mg po TID that she should take [id number], then start taking the Barnett that she already has, 1 to 2 tablets every 6-8 hours as needed for pain not resolved with ketorolac. I will also submit a prescription for Zofran that she can take every 6-8 hours as needed for nausea. She is to then follow-up with her Urologist on Saturday, as scheduled. Departure - Departure Time of Disposition: 03:37 Disposition: Home, Self-Care 01 Condition: Good Clinical Impression: Nausea & vomiting, Inadequate pain control, Ureterolithiasis - Discharge Information *PRESCRIPTION DRUG MONITORING PROGRAM REVIEWED*: Not Applicable *COPY OF PRESCRIPTION DRUG MONITORING REPORT IN PATIENT JOSE: Not Applicable Prescriptions: Tamsulosin [Flomax] 1 cap PO QAM PRN #10 cap.er PRN Reason: Pain Ketorolac [Toradol] 1 tab PO TID #30 tab Ondansetron [Zofran ODT] 1 tab PO Q8H PRN #30 tab.dis PRN Reason: Nausea/Vomiting Instructions: Nausea and Vomiting, Adult Referrals: Merna Ferro MD [Ordering Only Provider] - Diane Hester NP [Primary Care Provider] - Forms: ED Department Discharge Additional Instructions: You were seen in the emergency room for inadequately treated right kidney stone pain, along with nausea and vomiting. Your pain and nausea were brought under control in the ER with IV Dilaudid, IV Zofran, a GI cocktail, oral Pepcid, oral tamsulosin, and IV fluid. Prescriptions for the pain reliever ketorolac (Toradol), the anti-spasm medicine tamsulosin (Flomax), and the anti-nausea medicine Zofran have been sent to the [facility], located in the [facility] grocery store. Take 1 tablet of ketorolac 3 times a day, [id number], as prescribed. Take 1 tablet of tamsulosin every morning, starting tomorrow morning, , 11/24/2020. You may take 1 to 2 tablets of hydrocodone/acetaminophen (Barnett) up to every 6-8 hours, as needed for pain not relieved by ketorolac and tamsulosin. If you take Barnett, do not drive or operate heavy machinery for 12 hours afterwards. Barnett may cause constipation, so consider taking a stool softener. You may dissolve 1 tablet of Zofran on your tongue up to every 6-8 hours, as needed for nausea/vomiting. We recommend that you purchase [id number] famotidine (Pepcid). Generic famotidine is just as good as name brand Pepcid. We recommend that you take 1 tablet of famotidine every 12 hours for 1 week, after which you may decrease the dosage to 1 tablet every morning. If your acid reflux symptoms return after you decrease the dosage to 1 tablet in the morning, return your dosage to 1 tablet twice a day. If you continue to have acid reflux symptoms despite taking 1 tablet of famotidine twice a day, please follow-up with your PCP, Diane Hester NP, to arrange for an EGD (scope of your stomach). Stay adequately hydrated. Follow-up with your urologist in [place] this coming 11/25/2020, in order to undergo removal of your kidney stone. If any other problems, please do not hesitate to return to the ER. Sepsis Event Note (ED) - Evaluation Sepsis Screening Result: No Definite Risk - Focused Exam Vital Signs: Vital Signs Temp Pulse Resp BP Pulse Ox 11/22/20 23:17 36.4 C 95 15 157/102 H 97
[2020-11-23] MEDS ORDERED: HYDROmorphone 0.5 MG/0.5 ML Syringe IVPUSH ONE (02:18)
[2020-11-23] MEDS ORDERED: Alum Hydrox/Mag Hydrox/Simeth 30 ML, Lidocaine 2% 15 ML PO STA ×2 (03:03)
[2020-11-23] MEDS ORDERED: Famotidine 20 MG Tab PO STA (03:35)
[2020-11-23] MEDS ORDERED: Tamsulosin 0.4 MG Cap.ER PO ONE (03:39)
== END 2020-11-23 04:12 | disposition home or self-care (01) ==
LOC: JD.ED 23:03
DX: N20.1 Calculus of ureter (principal); R11.2 Nausea with vomiting, unspecified; E66.9 Obesity, unspecified; I10 Essential (primary) hypertension; Z68.32 Body mass index [BMI] 32.0-32.9, adult; Z88.0 Allergy status to penicillin; Z88.2 Allergy status to sulfonamides; Z91.040 Latex allergy status; Z88.8 Allergy status to other drugs, medicaments and biological substances
CPT/HCPCS: 81001; 81025; 96374; 96375; 96376; 99284; A9270; J1170; J2405; J7030